=== PATIENT | female | born 1955 | race Caucasian/White ===

== ENCOUNTER 2019-08-03 10:40 | Outpatient (CLI) | payer OTHER, SELFPAY ==
--- NOTE | ~2019-08-03 | MM_ITS ---
EXAMINATION: MM screening [facility] BI w jose HISTORY: Screening mammogram TECHNIQUE: Craniocaudal and mediolateral oblique 3-D tomosynthesis images were obtained and synthetic 2-D images were generated. CAD analysis was submitted and interpreted. COMPARISON: 07/30/2018, 07/22/2017, 07/20/2016 BREAST PARENCHYMAL COMPOSITION: The breasts are almost entirely fatty. FINDINGS: There is no evidence of suspicious mass, calcification, or architectural distortion to sugg est malignancy in either breast. There has been no suspicious interval change. IMPRESSION: 1. No mammographic evidence of malignancy. 2. Recommend routine screening mammography in one year. BI-RADS Category 1: Negative Reviewed, dictated and finalized at location A.
== END 2019-08-03 10:41 | disposition home or self-care (01) ==
PROVIDERS: PCP Family Medicine Adolescent Medicine; Visit Provider Obstetrics & Gynecology
DX: Z12.31 Encounter for screening mammogram for malignant neoplasm of breast (principal)
CPT/HCPCS: 77063; 77067

== ENCOUNTER 2020-02-26 03:43 | Outpatient (CLI) | payer OTHER, SELFPAY ==
[2020-02-26 17:45] LABS: SARS-CoV-2 RNA PCR Negative
== END 2020-02-26 03:44 | disposition home or self-care (01) ==
LOC: ANHCOVIDDT 03:44
PROVIDERS: PCP Family Medicine Adolescent Medicine; Visit Provider Obstetrics & Gynecology
DX: Z01.812 Encounter for preprocedural laboratory examination (principal); Z20.828 Contact with and (suspected) exposure to other viral communicable diseases
CPT/HCPCS: 87635; C9803; U0003

== ENCOUNTER 2020-02-29 01:43 | Day surgery (SDC) | payer OTHER, SELFPAY ==
[2020-02-25 12:45] VITALS: BMI 22.2
--- NOTE | 2020-02-25 13:05 | PM.IMHP ---
H&P: HPI History of Present Illness Date/Time: 02/25/20 13:05 Chief complaint: post menopausal bleeding Narrative: Ivet Jacinto is a 65 year old female Female who is admitted for hysteroscopy D&C she had questionable postmenopausal bleeding. She underwent ultrasound showed a fibroid at the fundal area of the uterus. She is admitted to rule out pathology. Review of Systems Review of Systems: All systems reviewed & are unremarkable except as noted in HPI and below PMFSH Family History Family History Father Diabetes mellitus Mother Family history of malignant neoplasm Social History Social History Smoking status: Never smoker Alcohol intake: current Meds Home Medications and Allergies Home Medications Medication Instructions Recorded Confirmed Type alprazolam 0.5 mg PO QID PRN 02/25/20 02/25/20 History apixaban [Eliquis] 5 mg PO BID 02/25/20 02/25/20 History buspirone 10 mg PO DAILY 02/25/20 02/25/20 History calcium carbonate [Calcium 600] 600 mg PO BID 02/25/20 02/25/20 History cyclosporine [Restasis] 1 drp OPHTHALMIC (EYE) DIRECTED 02/25/20 02/25/20 History PRN sotalol 80 mg PO BID 02/25/20 02/25/20 History spironolactone 25 mg PO DAILY 02/25/20 02/25/20 History vit C,S-Ws-miuua-lutein-zeaxan 1 tablet PO BID 02/25/20 02/25/20 History [PreserVision AREDS-2] Allergies Allergy/AdvReac Type Severity Reaction Status Date / Time Sulfa (Sulfonamide Allergy Unknown Itching Verified 02/25/20 12:46 Antibiotics) adhesive Allergy SKIN Verified 02/25/20 12:47 IRRITATION W/PROLONGED USE Exam Const: General: no acute distress Eyes: General: appearance normal, both eyes and all related structures Neck: Neck: supple and no JVD Thyroid: thyroid normal Resp: Effort & Inspection: normal respiratory effort Auscultation: clear to auscultation bilaterally Cardio: Rate: regular rate Rhythm: regular rhythm GI: Inspection: non-distended GI Palp: Yes Soft to palpation, No Tenderness to palpation present (GI) and No Guarding due to palpation present (GI) Auscultation: normal bowel sounds : General: Yes bladder normal to palpation External Female Exam: normal external appearance Speculum Exam - Vagina: normal vaginal discharge and No vaginal bleeding Speculum Exam - Cervix: nontender Bimanual exam- vagina & uterus: bladder normal to palpation and No Cervical tenderness present OB/external & speculum: No vaginal bleeding Skin: General skin exam: no rashes or lesions noted Extrem: General: normal to inspection and no edema Psych: Mental Status: mental status grossly normal Affect: normal affect Assessment and Plan Additional Plan Impression: Postmenopausal bleeding Plan: Hysteroscopy / dilatation curettage
--- NOTE | 2020-02-29 06:27 | WPDHPUPDATE1 ---
History and Physical Update Update Date/Time: 02/29/20 06:27 History and Physical has been reviewed, including an updated exam of the patient. There are NO changes in the patient's condition. Risks, benefits, and alternatives have been discussed and questions answered. Patient agrees to proceed with procedure.
[2020-02-29] MEDS: ACETAMINOPHEN 500 MG TABLET 1000 MG PO (07:36)
[2020-02-29] MEDS: LACTATED RINGERS 1,000 ML 30 ML IV CONT (08:04)
[2020-02-29 08:07] LABS: Hematocrit 41.5 % (37.0-47.0); Hemoglobin 14.1 g/dL (12.0-15.0)
[2020-02-29 08:14] VITALS: BP 124/61; PULSE 45; RESP 16; TEMP 36.9; O2SAT 98
--- NOTE | 2020-02-29 08:14 | WPDANESEPPF ---
Anes - Initial Pre Proc Eval Procedure: Operation Date: 02/29/20 09:15 Proposed Procedures p Hysteroscopy, Dilation and Curettage - Feliberto Alejandro MD Date/Time: 02/29/20 08:14 Surgeon: Feliberto Alejandro MD Pre Op Diagnosis: post menopausal bleeding Patient Data Age: 65 Gender: F Height: 1.7 m Weight: 64.2 kg Allergies Allergy/AdvReac Type Severity Reaction Status Date / Time adhesive Allergy Intermediate SKIN Verified 02/29/20 07:23 IRRITATION W/PROLONGED USE Sulfa (Sulfonamide Allergy Mild Itching Verified 02/29/20 07:23 Antibiotics) Home Medications Medication Instructions Recorded Confirmed Type alprazolam 0.5 mg PO QID PRN 02/25/20 02/29/20 History apixaban [Eliquis] 5 mg PO BID 02/25/20 02/29/20 History buspirone 10 mg PO DAILY 02/25/20 02/29/20 History calcium carbonate [Calcium 600] 600 mg PO BID 02/25/20 02/29/20 History cyclosporine [Restasis] 1 drp OPHTHALMIC (EYE) DIRECTED 02/25/20 02/29/20 History PRN sotalol 80 mg PO BID 02/25/20 02/29/20 History spironolactone 25 mg PO DAILY 02/25/20 02/29/20 History vit C,F-Or-elexo-lutein-zeaxan 1 tablet PO BID 02/25/20 02/29/20 History [PreserVision AREDS-2] hydrocodone-acetaminophen 1 tablet PO Q6H PRN #20 tablet 02/29/20 Rx Laboratory Tests 02/29/20 02/29/20 08:01 08:01 Hgb 14.1 g/dL g/dL (12.0-15.0) Hct 41.5 % % (37.0-47.0) Sodium Pending Potassium Pending Chloride Pending Carbon Dioxide Pending Anion Gap Pending BUN Pending Creatinine Pending Estim Creat Clear Calc Pending Estimated GFR Pending Glucose Pending Calcium Pending Patient hx anesthesia problems: none Family hx anesthesia problems: none PMFSH Past Medical History Medical History (Updated 02/29/20 @ 08:18 by Ahsan Bro MD) Anxiety Atrial fibrillation Depression Endometriosis EDSON (obstructive sleep apnea) Family History Family History Father Diabetes mellitus Mother Family history of malignant neoplasm Social History Social History Smoking status: Never smoker Alcohol intake: current Anes - Eval Final PreProcedure Day of Procedure 02/29/20 08:14 Patient weight: normal Heart: regular rate and rhythm Lungs: clear to auscultation and normal air movement Airway: Mallampati scale class II Neurological: alert and oriented Last oral intake: >/= 8 hours ASA classification: III Emergent: no Anesthetic plan: proceed Anesthesia type and monitoring: general GIVS and LMA Informed Consent: The patient's anesthetic plan and its attendant risks and benefits were discussed with the patient/family/POA. Questions were solicited and answers provided to the satisfaction of the patient/family/POA.
[2020-02-29 08:18] LABS: Anion Gap 7 mmol/L (8-16); Blood Urea Nitrogen 12 mg/dL (7-17); Calcium 9.4 mg/dL (8.4-10.2); Carbon Dioxide 27 mmol/L (22-30); Chloride 107 mmol/L (98-107); Estimated CRCL calculation 69 ml/min; Estimated Glomerular Filt Rate > 60; Glucose 91 mg/dL (65-105); Sodium 141 mmol/L (137-145)
--- NOTE | 2020-02-29 08:44 | SUR.PREOP ---
Up to bathroom.
--- NOTE | 2020-02-29 09:22 | SUR.OPER ---
hysteroscopy irrigation 100 in and 50 out
--- NOTE | 2020-02-29 09:27 | P.OP_ITS ---
Procedure Note - Detailed Date of procedure: 02/29/20 Pre-op diagnosis: post menopausal bleeding Surgeon: Feliberto Alejandro MD postop diagnosis: Postmenopausal bleeding Procedure: Hysteroscopy / dilatation curettage Anesthesia: IV sedation and local EBL: 5Cc Complications: None Findings: Benign atrophic endometrium as expected for a woman of this age Description of procedure: The patient was prepped and draped in the normal sterile fashion and placed in the dorsal lithotomy position. Under excellent IV sedation weighted speculum placed in the posterior fornix of vagina. Anterior lip of the cervix grasped with a single-tooth tenaculum and 2.5cc 1% xylocaine anesthesia placed at 2, 4, 8, 10:00 a.m. of the cervix. Uterus sounded to 6cm. Serial dilatation with fragmented dilators performed followed by passes the 5mm visualizing hysteroscope using normal saline as visually medium. Her benign a trophic endometrium was seen as expected. Uterus was scraped over the entire 360? revealing essentially no tissue. The it to instruments were removed. All sponge, needle, instrument counts were correct. There were no immediate complications
[2020-02-29 09:29] VITALS: BP 117/62; PULSE 59; RESP 10; O2SAT 95
[2020-02-29 10:00] VITALS: BP 129/69; PULSE 50; RESP 14; O2SAT 96
== END 2020-02-29 10:30 | disposition home or self-care (01) ==
PROVIDERS: Anesthesiology; PCP Family Medicine Adolescent Medicine; Visit Provider Obstetrics & Gynecology
PROC: 0U5B8ZZ Destruction of Endometrium, Via Natural or Artificial Opening Endoscopic (ICD-10-PCS; CPT 58563; principal; 2020-02-29 09:15)
DX: N95.0 Postmenopausal bleeding (principal); I48.91 Unspecified atrial fibrillation; F41.8 Other specified anxiety disorders; G47.33 Obstructive sleep apnea (adult) (pediatric); Z79.01 Long term (current) use of anticoagulants
CPT/HCPCS: 58558; 36415; 80048; 85014; 85018; 88305; A9270; J1100; J2250; J2405; J2704; J3010; J7030; J7120

== ENCOUNTER 2020-09-07 11:46 | Outpatient (CLI) | payer BC, OTHER, SELFPAY ==
--- NOTE | ~2020-09-07 | MM_ITS ---
EXAMINATION: MM screening [facility] BI w jose HISTORY: Screening TECHNIQUE: Craniocaudal and mediolateral oblique 3-D tomosynthesis images were obtained and synthetic 2-D images were generated. CAD analysis was submitted and interpreted. COMPARISON: Comparison to multiple prior studies sequentially, with oldest reviewed study dated 06/23. BREAST PARENCHYMAL COMPOSITION: There are scattered areas of fibroglandular density. FINDINGS: There is no evidence of suspicious mass, calcification, or architectural distortion to sugg est malignancy in either breast. There has been no suspicious interval change. IMPRESSION: 1. No mammographic evidence of malignancy. 2. Recommend routine screening mammography in one year. BI-RADS Category 1: Negative Reviewed, dictated and finalized at location A.
== END 2020-09-07 11:47 | disposition home or self-care (01) ==
LOC: ANHIMG 11:50
PROVIDERS: PCP Family Medicine Adolescent Medicine; Visit Provider Obstetrics & Gynecology
DX: Z12.31 Encounter for screening mammogram for malignant neoplasm of breast (principal)
CPT/HCPCS: 77063; 77067

== ENCOUNTER 2021-03-15 10:26 | Outpatient (CLI) | payer BC, OTHER, SELFPAY ==
--- NOTE | 2021-03-15 10:30 | ECG_ITS ---
Measurements Intervals [place] Rate: 44 P: 73 IN: 160 QRS: 46 QRSD: 91 T: 70 QT: 452 QTc: 390 Interpretive Statements SINUS BRADYCARDIA BASELINE ARTIFACT- I, II, AVR, AVL ABNORMAL ECG Electronically Signed On 03-15-2021 10:51:22 PERINATAL COORDINATOR by Alverto Escobar D.O.
[2021-03-15 11:04] LABS: Basophils Absolute Auto 0.1 K/mm3 (0.0-0.1); Eosinophils Absolute Auto 0.1 K/mm3 (0-0.3); Eosinophils Percent Auto 1.4 % (0-4.4); Hematocrit 41.8 % (37.0-47.0); Hemoglobin 13.8 g/dL (12.0-15.0); Immature Granulocyte Absolute 0.01 K/mm3 (0.00-0.031); Immature Granulocyte Percent A 0.2 % (0-0.5); Lymphocytes Absolute Auto 1.93 K/mm3 (0.9-3.2); Lymphocytes Percent Auto 37.8 % (18.3-44.2); Mean Corpuscular Hemoglobin 31.8 pg (26-34); Mean Corpuscular Volume 96.3 fl (80-100); Mean Platelet Volume 10.2 fl (7.4-10.4); Monocytes Absolute Auto 0.4 K/mm3 (0.1-0.6); Monocytes Percent Auto 8.2 % (2.6-8.5); Neutrophils Absolute Auto 2.6 K/mm3 (1.3-6.7); Neutrophils Percent Auto 51.4 % (45.5-73.1); Platelet Count Result 264 k/mm3 (150-375); Red Blood Count 4.34 M/mm3 (4.2-5.4); Red Cell Distribution Width 12.1 % (11.5-14.5); White Blood Count 5.1 K/mm3 (4.5-10.0)
== END 2021-03-15 10:27 | disposition home or self-care (01) ==
LOC: ANHSURGERY 10:29
PROVIDERS: PCP Family Medicine Adolescent Medicine; Visit Provider Obstetrics & Gynecology
DX: N95.0 Postmenopausal bleeding (principal); I48.91 Unspecified atrial fibrillation; Z01.818 Encounter for other preprocedural examination; R94.31 Abnormal electrocardiogram [ECG] [EKG]
CPT/HCPCS: 36415; 85025; 86850; 86900; 86901; 93005

== ENCOUNTER 2021-03-17 01:18 | Day surgery (SDC) | payer BC, OTHER, SELFPAY ==
[2021-03-14 11:47] VITALS: BMI 23.0
--- NOTE | 2021-03-14 12:11 | PC.NURSE ---
Report to the Outpatient Waiting Room, entrance under the green pavilion located off [facility], at time 9:30 on date 03/17/21. OR Time: 11:30. - You and your visitor will be asked a series of questions to screen for COVID 19 for your protection. - A mask is required within the hospital. - Only one visitor is allowed at this time. Patient visitors will be guided where to wait when not with patient. Preoperative COVID Testing Requirements: No COVID Test needed if: (proof is required; if not received patient will have Rapid Test prior to entry) - Patient has received COVID Vaccine at least 14 days prior to procedure date or - Patient has positive COVID test result within last 90 days of surgery date. COVID Test needed if above criteria is not met If not COVID vaccinated a COVID test must be conducted within 72 hours of surgery and patient is asked to isolate self from time of testing until procedure. You will go to the [facility] for your COVID testing. The [facility] site is located at the corner of [address] [facility]. You will only be called if COVID results are positive and your surgeon may reschedule your elective surgery date. Patients may have clear liquids (water, carbonated beverages, clear teas, apple juice) until 3 hours prior to surgery with a maximum of 20 ounces. - No food from midnight until time of surgery - Infants may have breast milk until 4 hours before surgery, infant formula 6 hours prior to surgery. - Children will be allowed to drink immediately following surgery. If applicable, please bring a bottle or sippy cup to assist with drinking. Juice, water, soda, and popsicles are readily available. For infants on formula, please bring formula the day of surgery. Pacifiers are allowed. Take the following medications with a SIP of water the morning of surgery: DULOXETINE, XANAX (IF NEEDED), BUSPIRONE, SOTALOL Medications to discontinue per physician: VITAMINS/SUPPLEMENTS Date to take last dose: 3 DAYS PRE-OP DISCONTINUE ELIQUIS PER DR. PABLO ANDUJAR Please no make-up, nail french, hairspray, perfume, deodorant, or body powder the day of surgery. No jewelry (including any body piercings) or valuables the day of surgery, leave them at home. Please take a shower or bath the night before, or the morning of, surgery with an antibacterial soap. Wear comfortable, loose fitting clothing. Children are encouraged to wear pajamas. - Jewelry must be removed prior to entering the operating room. Rings and piercings that are not removed may be cut off. - The hospital will not accept responsibility for valuables. - Please leave all valuables, including medications, at home the day of surgery. If you are going home after surgery, a licensed wrecker driver must drive you home. - NO public transportation without another adult. - We recommend that an adult stay with you for 24 hours following discharge. - We also recommend that you do not drive, make important decision, drink alcoholic beverages, or take any drugs that were not prescribed by your health care provider for at least 24 hours after your discharge time. For Pediatric surgeries, we recommend two adults accompany the child home (only one inside the building at this time). Follow any additional instructions given to you from your surgeon. Telephone instructions given to CINTIA MERIDA and asked if any additional questions and then verbalized understanding. Patient advised to call surgeon office or pre surgery nurse liaison [phone] if any additional questions.
--- NOTE | 2021-03-15 07:42 | PM.IMHP ---
H&P: HPI History of Present Illness Date/Time: 03/15/21 07:42 This pleasant 66 year female who is admitted for robotic total vaginal hysterectomy and bilateral salpingo-oophorectomy. She has had postmenopausal bleeding. D&C findings have been benign. In light of her continued bleeding she is admitted for hysterectomy and bilateral salpingo-oophorectomy. Risks benefits were reviewed including but not exclusive of , aspiration bleeding transfusion perforation injury to bowel, bladder, ureters, or other internal organs with need for open laparotomy. She received the [employer] handouts entitled hysterectomy. She receives the [place] handout. She had all questions answered. She asked to proceed Chief Complaint: Postmenopausal bleeding with benign findings Review of Systems Review of Systems: All systems reviewed & are unremarkable except as noted in HPI and below PMFSH Past Medical History Medical History Anxiety Atrial fibrillation Depression Endometriosis EDSON (obstructive sleep apnea) Family History Family History Father Diabetes mellitus Mother Family history of malignant neoplasm Social History Social History Smoking status: Never smoker Alcohol intake: never Substance use: never Substance use type: does not use Spiritual care concerns: No Meds Home Medications and Allergies Home Medications Medication Instructions Recorded Confirmed Type alprazolam 0.5 mg PO QID PRN 02/25/20 03/14/21 History apixaban [Eliquis] 5 mg PO BID 02/25/20 03/14/21 History buspirone 10 mg PO DAILY 02/25/20 03/14/21 History calcium carbonate [Calcium 600] 600 mg PO BID 02/25/20 03/14/21 History sotalol 80 mg PO BID 02/25/20 03/14/21 History spironolactone 25 mg PO DAILY 02/25/20 03/14/21 History vit C,O-Nj-kyhex-lutein-zeaxan 1 tablet PO BID 02/25/20 03/14/21 History [PreserVision AREDS-2] duloxetine 30 mg PO DAILY 03/14/21 03/14/21 History Allergies Allergy/AdvReac Type Severity Reaction Status Date / Time adhesive Allergy Intermediate SKIN Verified 03/14/21 11:44 IRRITATION W/PROLONGED USE Sulfa (Sulfonamide Allergy Mild Itching Verified 03/14/21 11:44 Antibiotics) Exam Const: General: no acute distress Eyes: General: appearance normal, both eyes and all related structures Neck: Neck: supple and no JVD Thyroid: thyroid normal Resp: Effort & Inspection: normal respiratory effort Auscultation: clear to auscultation bilaterally Cardio: Rate: regular rate Rhythm: regular rhythm GI: Inspection: non-distended GI Palp: Yes Soft to palpation, No Tenderness to palpation present (GI) and No Guarding due to palpation present (GI) Auscultation: normal bowel sounds : External Female Exam: normal external appearance Speculum Exam - Vagina: normal appearance of the vagina Speculum Exam - Cervix: normal appearance of the cervix Bimanual exam- vagina & uterus: enlarged Bimanual Exam- Adnexa, other: no masses Skin: General skin exam: no rashes or lesions noted Extrem: General: normal to inspection and no edema Psych: Mental Status: mental status grossly normal Affect: normal affect Assessment and Plan Additional Plan Impression: Postmenopausal bleeding with benign D&C findings Plan: Robotic total vaginal hysterectomy bilateral salpingo-oophorectomy
[2021-03-17] VITALS (14 sets, daily range): BP systolic 100–154; BP diastolic 49–76; PULSE 40–58; RESP 14–18; TEMP 36.1–37.2; O2SAT 16–100; BMI 22.7
--- NOTE | 2021-03-17 07:01 | WPDHPUPDATE1 ---
History and Physical Update Update Date/Time: 03/17/21 07:01 History and Physical has been reviewed, including an updated exam of the patient. There are NO changes in the patient's condition. Risks, benefits, and alternatives have been discussed and questions answered. Patient agrees to proceed with procedure.
[2021-03-17] MEDS: KETOROLAC 15 MG/ML VIAL (*BKC) IV PUSH (10:30)
[2021-03-17] MEDS: ACETAMINOPHEN 500 MG TABLET 1000 MG PO (10:30)
[2021-03-17] MEDS: LACTATED RINGERS 1,000 ML 30 ML IV CONT ×2 (10:30→12:03)
--- NOTE | 2021-03-17 10:31 | P.PNAN_ITS ---
Anes - Initial Pre Proc Eval Procedure: Operation Date: 03/17/21 11:30 Proposed Procedures p Robotic Assisted Total Vaginal Hysterectomy with Bilateral Salpingo- oophorectomy - Feliberto Alejandro MD Date/Time: 03/17/21 10:31 Surgeon: Feliberto Alejandro MD Pre Op Diagnosis: post menopausal bleeding Patient Data Age: 66 Gender: F Height: 1.69 m Weight: 64.8 kg Last Vital Signs Temp 36.7 C 03/17/21 10:06 Pulse 45 L 03/17/21 10:06 Resp 18 03/17/21 10:06 BP 107/57 L 03/17/21 10:06 Pulse Ox 100 03/17/21 10:06 Allergies Allergy/AdvReac Type Severity Reaction Status Date / Time adhesive Allergy Intermediate SKIN Verified 03/17/21 09:48 IRRITATION W/PROLONGED USE Sulfa (Sulfonamide Allergy Mild Itching Verified 03/17/21 09:48 Antibiotics) Home Medications Medication Instructions Recorded Confirmed Type alprazolam 0.5 mg PO QID PRN 02/25/20 03/17/21 History apixaban [Eliquis] 5 mg PO BID 02/25/20 03/17/21 History buspirone 10 mg PO DAILY 02/25/20 03/17/21 History calcium carbonate [Calcium 600] 600 mg PO BID 02/25/20 03/17/21 History sotalol 80 mg PO BID 02/25/20 03/17/21 History spironolactone 25 mg PO DAILY 02/25/20 03/17/21 History vit C,S-Eq-ttivz-lutein-zeaxan 1 tablet PO BID 02/25/20 03/17/21 History [PreserVision AREDS-2] duloxetine 30 mg PO DAILY 03/14/21 03/17/21 History hydrocodone-acetaminophen 1 tablet PO Q4H PRN #30 tablet 03/17/21 Rx Patient hx anesthesia problems: post op nausea/vomiting Family hx anesthesia problems: none Results Review: All pre-operative results and documents have been reviewed as part of the pre-operative evaluation. [facility] Past Medical History Medical History Anxiety Atrial fibrillation Depression Endometriosis EDSON (obstructive sleep apnea) Family History Family History Father Diabetes mellitus Mother Family history of malignant neoplasm Social History Social History Smoking status: Never smoker Alcohol intake: never Substance use: never Substance use type: does not use Living arrangements: with family Spiritual care concerns: No Anes - Eval Final PreProcedure Day of Procedure 03/17/21 10:31 Patient weight: normal Heart: regular rate and rhythm Lungs: clear to auscultation Airway: Mallampati scale class III Neurological: alert and oriented Last oral intake: >/= 8 hours ASA classification: III Emergent: no Anesthetic plan: proceed Anesthesia type and monitoring: general ETT and standard monitoring Results Review: All pre-operative results and documents have been reviewed as part of the pre-operative evaluation. Informed Consent: The patient's anesthetic plan and its attendant risks and benefits were discussed with the patient/family/POA. Questions were solicited and answers provided to the satisfaction of the patient/family/POA.
[2021-03-17] MEDS: SCOPOLAMINE 1.5 MG PATCH TRANSDERM (10:46)
[2021-03-17] MEDS: ceFAZolin 2 GM/D5W 50 ML 2 GM/50 ML BAG IVPB (10:50)
--- NOTE | 2021-03-17 11:49 | W.PM.PROC2 ---
Procedure Note - Detailed Date of Procedure 03/17/21 Pre-op Diagnosis post menopausal bleeding Post-op Diagnosis same Procedure Performed Robotic total vaginal hysterectomy and bilateral salpingo-oophorectomy Surgeon Feliberto Alejandro MD Anesthesia general Indications This is a 66-year-old female with recurrence vaginal bleeding and benign findings on hysteroscopy Findings Small uterus small ovaries and tubes Description of Procedure The patient was prepped and draped in the normal sterile fashion and placed in the dorsal lithotomy position under excellent general endotracheal anesthesia weighted speculum was placed in posterior fornix vagina. Anterior lip of the cervix grasped with a single-tooth tenaculum and the uterus sounded to 8cm. Serial dilatation with fragmented dilators performed followed by passage of the number 8 LE and 3. Cold cup. A 16 [place] catheter was placed in the bladder to drain clear urine. The weighted speculum and tenaculum were removed. The gloves were changed Supraumbilical incision made the Veress needle passed in the abdomen. The abdomen filled with CO2 gas [id number]. The 8mm trocar advanced in the abdomen and the downside visualized with no injury seen. The patient was placed in Trendelenburg and left and right lateral quadrant incisions made. The 8mm trocars advanced under direct visualization assuring no injury a right upper quadrant incision made 8mm trocar advanced under direct visualization assuring no injury. The robot was docked. Attention was turned to the console. The left round ligament was grasped, burned, cut. Anteriorly a bladder flap was formed by sharply dissecting the peritoneum and reflecting the bladder caudally away to the opposite round ligament which was clamped, burned, cut. Next the left infundibulopelvic structure was skeletonized remove the left ovary and tube this was clamped, burned, cut and brought serially to the previously cut round ligament. In like fashion the right ovary and tube were removed by clamping burning and cutting the infundibulopelvic structure on the right and approaching the previously cut round ligament. Cardinal and broad ligaments on the right were then serially skeletonized hugging the cervix and uterus clamped, burned, cut and brought down to the level of the uterine vessels. These were individually clamped, burned, cut. In like fashion the cardinal broad ligaments were clamped burned and cut sliding along the edge of the uterus and cervix until the uterine vessels could be seen on the right. Uterine vessels were individually clamped, burned, cut. Excellent blanching the uterus was noted in a colpotomy incision made. The uterus cervix and tubes removed through the vagina. Blood loss estimated at [id number]. The vagina was closed with continuous running 0V lock from lateral edge to lateral edge back to the midline. Irrigation undertaken until clear and hemostasis was assured at the pedicles. The robot was undocked. The gas removed from the abdomen. The trocars removed and the incisions closed with 4 Monocryl and glue. The patient was awakened and went to recovery in satisfactory condition. All sponge, needle, instrument counts were correct. There were no immediate complications Estimated Blood Loss 5 Drains No Packing No Pathology yes Complications No immediate complications Condition stable Disposition PACU
--- NOTE | 2021-03-17 12:08 | SUR.OPER ---
EBL 25ML
[2021-03-17] MEDS: DEXTROSE 5%/LACTATED RINGERS 1,000 ML 125 ML IV CONT (13:44)
[2021-03-17] MEDS: MORPHINE SULFATE (*CRX) 4 MG/ML INJ IV PUSH (13:45)
--- NOTE | 2021-03-17 13:50 | OBPPTRN ---
Patient transferred to post room #286 via bed. Oriented to unit, room, information board, admission packet and security measures. Patient verbalizes understanding.
[2021-03-17] MEDS: KETOROLAC 30 MG/ML VIAL (*BKC) IV PUSH (16:26)
[2021-03-17] MEDS: HYDROcodone/acetaminophen (*CRX) 10-325 MG TABLET 1 TAB PO (20:17)
[2021-03-17] MEDS: DOCUSATE SODIUM 100 MG CAPSULE PO (20:17)
[2021-03-17] MEDS: IBUPROFEN 600 MG TABLET PO (20:18)
[2021-03-17] MEDS: busPIRone HCL 10 MG TABLET PO (22:17)
[2021-03-17] MEDS: SOTALOL HCL 80 MG TABLET PO (22:18)
[2021-03-18] MEDS: HYDROcodone/acetaminophen (*CRX) 10-325 MG TABLET 1 TAB PO (00:37)
[2021-03-18] MEDS: SIMETHICONE 80 MG TAB.CHEW PO (00:37)
[2021-03-18 03:20] VITALS: BP 104/47; PULSE 52; RESP 18; TEMP 36.9
[2021-03-18 05:34] LABS: Basophils Percent Auto 0.4 % (0.2-1.2); Hematocrit 33.7 % (37.0-47.0); Hemoglobin 11.3 g/dL (12.0-15.0); Immature Granulocyte Absolute 0.07 K/mm3 (0.00-0.031); Immature Granulocyte Percent A 0.6 % (0-0.5); Lymphocytes Absolute Auto 1.33 K/mm3 (0.9-3.2); Lymphocytes Percent Auto 12.3 % (18.3-44.2); Mean Corpuscular HGB Conc 33.5 g/dl (32-36); Mean Corpuscular Hemoglobin 32.3 pg (26-34); Mean Corpuscular Volume 96.3 fl (80-100); Mean Platelet Volume 10.8 fl (7.4-10.4); Monocytes Absolute Auto 0.8 K/mm3 (0.1-0.6); Monocytes Percent Auto 7.1 % (2.6-8.5); Neutrophils Absolute Auto 8.6 K/mm3 (1.3-6.7); Neutrophils Percent Auto 79.6 % (45.5-73.1); Platelet Count Result 202 k/mm3 (150-375); White Blood Count 10.8 K/mm3 (4.5-10.0)
--- NOTE | 2021-03-18 07:33 | PM.GYNPNOP ---
MEETING MANAGER - A/P Postoperative Procedures: Procedures Operation Date: 03/17/21 11:30 Actual Procedure Side Surgeon p Robotic Assisted Total Vaginal Hysterectomy with Bilateral Salpingo-oophorectomy Bilateral Feliberto Alejandro MD Postoperative day: 1 Postoperative status: doing well Postoperative plan: routine post-op care and discharge Time Spent With Patient Time: Total time spent is greater than 50% in coordination of care (as documented) at patient's floor/unit and/or counseling patient: Time with patient: less than 15 minutes MEETING MANAGER- PN:Subj Post-Op Subjective Date/time seen: 03/18/21 07:33 Subjective: patient has no complaints Review of Systems Review of Systems: All systems reviewed & are unremarkable except as noted in HPI and below Exam Const: General: no acute distress Eyes: General: appearance normal, both eyes and all related structures Neck: Neck: supple and no JVD Thyroid: thyroid normal Resp: Effort & Inspection: normal respiratory effort Auscultation: clear to auscultation bilaterally Cardio: Rate: regular rate Rhythm: regular rhythm GI: Inspection: normal to inspection and incision (cdi) : General: Yes bladder normal to palpation External Female Exam: normal external appearance Speculum Exam - Vagina: normal vaginal discharge and No vaginal bleeding Speculum Exam - Cervix: nontender Bimanual exam- vagina & uterus: bladder normal to palpation and No Cervical tenderness present OB/external & speculum: No vaginal bleeding Skin: General skin exam: no rashes or lesions noted Extrem: General: normal to inspection and no edema Psych: Mental Status: mental status grossly normal Affect: normal affect MEETING MANAGER - PN: Obj Data Vital Signs Vital Signs: Vital Signs - 24 hr 03/17/21 10:06 03/17/21 12:02 03/17/21 12:17 Temperature 98.1 F 97.0 F L Pulse Rate 45 L 58 L 41 L Respiratory Rate 18 15 15 Blood Pressure 107/57 L 129/74 149/76 H Pulse Oximetry 100 100 100 03/17/21 12:20 03/17/21 12:25 03/17/21 12:40 Temperature Pulse Rate 40 L 40 L 40 L Respiratory Rate 16 16 16 Blood Pressure 154/68 H 149/76 H 147/72 H Pulse Oximetry 100 97 97 03/17/21 12:55 03/17/21 13:05 03/17/21 13:15 Temperature Pulse Rate 41 L 46 L 46 L Respiratory Rate 14 18 15 Blood Pressure 150/71 H 133/69 146/64 H Pulse Oximetry 97 98 94 03/17/21 14:05 03/17/21 18:30 03/17/21 20:35 Temperature 97.8 F 99.0 F 97.6 F Pulse Rate 43 L 53 L 48 L Respiratory Rate 16 18 16 Blood Pressure 117/61 100/49 L 117/61 Pulse Oximetry 100 16 L 03/17/21 22:18 03/17/21 22:20 03/18/21 03:20 Temperature 99 F 98.4 F Pulse Rate 53 L 53 L 52 L Respiratory Rate 18 18 Blood Pressure 114/56 L 104/47 L Pulse Oximetry Intake/Output Intake/Output: Intake & Output 03/15/21 03/16/21 03/17/21 03/18/21 23:59 23:59 23:59 23:59 Intake Total 1650 4100 Output Total 40 2850 Balance 1610 1250 Meds/Results Medications: Active Medications Generic Name Dose Route Start Last Admin Trade Name Freq PRN Reason Stop Dose Admin Hydrocodone Bitart/Acetaminophen 1 tab 03/17/21 13:23 Hydrocodone/Acetaminophen (*Crx) 5-325 Mg Tablet PO Q3H PRN Pain Rated 5 or Less Hydrocodone Bitart/Acetaminophen 1 tab 03/17/21 13:23 03/18/21 00:37 Hydrocodone/Acetaminophen (*Crx) 10-325 Mg Tablet PO 1 tab Q3H PRN Administration Pain Rated 6 or Greater Apixaban 5 mg 03/17/21 21:00 03/17/21 22:16 Apixaban 5 Mg Tablet PO Not Given Q12HR NAZARIO Buspirone HCl 10 mg 03/17/21 21:00 03/17/21 22:17 Buspirone Hcl 10 Mg Tablet PO 10 mg HS NAZARIO Administration Docusate Sodium 100 mg 03/17/21 17:00 03/17/21 20:17 Docusate Sodium 100 Mg Capsule PO 100 mg BID NAZARIO Administration Ibuprofen 600 mg 03/17/21 13:23 03/17/21 20:18 Ibuprofen 600 Mg Tablet PO 600 mg Q6H PRN Administration Cramping Ketorolac Tromethamine 30 mg 03/17/21 13:23 03/17/21 16:26 Ketorola
--- NOTE | 2021-03-18 07:34 | PM.DS ---
DS: Admitting Diagnosis Discharge Date 03/18/2021 Admitting Diagnosis postmenopausal bleeding DS: Summary Hospital Course Hospital Course: the patient was admitted for robotic total vaginal hysterectomy and bilateral salpingo-oophorectomy. Procedure was unremarkable. She remained afebrile. She was up, voiding without difficulty, ambulating, and generally without complaints Time Spent with Patient Time attestation: Total time spent providing and/or coordinating discharge services: Exam Const: General: no acute distress Eyes: General: appearance normal, both eyes and all related structures Neck: Neck: supple and no JVD Thyroid: thyroid normal Resp: Effort & Inspection: normal respiratory effort Auscultation: clear to auscultation bilaterally Cardio: Rate: regular rate Rhythm: regular rhythm GI: Inspection: non-distended GI Palp: Yes Soft to palpation, No Tenderness to palpation present (GI) and No Guarding due to palpation present (GI) Auscultation: normal bowel sounds : General: Yes bladder normal to palpation External Female Exam: normal external appearance Speculum Exam - Vagina: normal vaginal discharge and No vaginal bleeding Speculum Exam - Cervix: nontender Bimanual exam- vagina & uterus: bladder normal to palpation and No Cervical tenderness present OB/external & speculum: No vaginal bleeding Skin: General skin exam: no rashes or lesions noted Extrem: General: normal to inspection and no edema Psych: Mental Status: mental status grossly normal Affect: normal affect DS: Data Data Completed and Pending Pending studies at discharge: Pending at discharge 03/17/21 11:30 Surgical [PTH] Routine Labs on day of discharge: Labs from last 24 hours 03/18/21 03:36 WBC 10.8 H RBC 3.50 L Hgb 11.3 L Hct 33.7 L MCV 96.3 MCH 32.3 MCHC 33.5 RDW 12.0 Plt Count 202 MPV 10.8 H Immature Gran % (Auto) 0.6 H Neut % (Auto) 79.6 H Lymph % (Auto) 12.3 L [place] % (Auto) 7.1 Eos % (Auto) 0.0 Baso % (Auto) 0.4 Lymph # (Auto) 1.33 [place] # (Auto) 0.8 H Eos # (Auto) 0.0 Baso # (Auto) 0.0 Abs Immat Gran (auto) 0.07 H Absolute Neuts (auto) 8.6 H Absolute Nucleated RBC 0.0 Nucleated RBC % 0.0 Discharge Plan Discharge Patient Disposition: Home, Self-Care Stand Alone Forms: General Discharge Instructions Follow-up/Referrals: Feliberto Alejandro MD [Physician] - Discharge Medications: New hydrocodone-acetaminophen 5-325 mg tablet 1 tablet PO Q4H PRN (Reason: pain) Qty: 30 RF: 0 No Action duloxetine 30 mg Capsule,Delayed Release(Dr/Ec) 30 mg PO DAILY RF: 0 sotalol 80 mg tablet 80 mg PO BID RF: 0 spironolactone 25 mg tablet 25 mg PO DAILY RF: 0 alprazolam 0.5 mg tablet 0.5 mg PO QID PRN (Reason: Anxiety) RF: 0 calcium carbonate [Calcium 600] 600 mg calcium (1,500 mg) Tablet 600 mg PO BID RF: 0 buspirone 15 mg tablet 10 mg PO DAILY RF: 0 Eliquis 5 mg tablet 5 mg PO BID RF: 0 PreserVision AREDS-2 [phone] Capsule 1 tablet PO BID RF: 0
[2021-03-18] MEDS: HYDROcodone/acetaminophen (*CRX) 5-325 MG TABLET 1 TAB PO (08:56)
[2021-03-18 08:57] VITALS: BP 101/47; PULSE 40; PULSE 60; RESP 12; TEMP 37.2; O2SAT 99
[2021-03-18] MEDS: SOTALOL HCL 80 MG TABLET PO (08:57)
[2021-03-18] MEDS: APIXABAN 5 MG TABLET PO (08:57)
[2021-03-18] MEDS: DOCUSATE SODIUM 100 MG CAPSULE PO (08:57)
--- NOTE | 2021-03-18 09:51 | WPDANESPN ---
Anes - Prog Note Post-Op Date/Time: 03/18/21 09:51 Cardiovascular status: normal Respiratory status: normal Airway patency: baseline Mental status: baseline Post-Op hydration status: normal Vital Signs: Last Vital Signs Temp 36.9 C 03/18/21 03:20 Pulse 60 03/18/21 08:57 Resp 18 03/18/21 03:20 BP 104/47 L 03/18/21 03:20 Pulse Ox 16 L 03/17/21 20:35 Pain Score (VAS): 0 I/O: Intake & Output 03/17/21 03/18/21 03/18/21 23:59 07:59 15:59 Intake Total 1000 4100 Output Total 2850 Balance 1000 1250 Laboratory Tests 03/18/21 03:36 03/18/21 03:36 WBC 10.8 H RBC 3.50 L Hgb 11.3 L Hct 33.7 L MCV 96.3 MCH 32.3 MCHC 33.5 RDW 12.0 Plt Count 202 MPV 10.8 H Immature Gran % (Auto) 0.6 H Neut % (Auto) 79.6 H Lymph % (Auto) 12.3 L [place] % (Auto) 7.1 Eos % (Auto) 0.0 Baso % (Auto) 0.4 Lymph # (Auto) 1.33 [place] # (Auto) 0.8 H Eos # (Auto) 0.0 Baso # (Auto) 0.0 Abs Immat Gran (auto) 0.07 H Absolute Neuts (auto) 8.6 H Absolute Nucleated RBC 0.0 Nucleated RBC % 0.0 Post-procedural complaints: none Patient Feedback: Patient satisfied with anesthetic care.
== END 2021-03-18 10:50 | disposition home or self-care (01) ==
LOC: ANHSURGERY 09:31 → ANHOB2 13:30
PROVIDERS: PCP Family Medicine Adolescent Medicine; Visit Provider Obstetrics & Gynecology
PROC: (CPT 58552; principal; 2021-03-17 11:30)
DX: N95.0 Postmenopausal bleeding (principal); N73.6 Female pelvic peritoneal adhesions (postinfective); I48.91 Unspecified atrial fibrillation; G47.33 Obstructive sleep apnea (adult) (pediatric); F32.9 Major depressive disorder, single episode, unspecified; Z79.01 Long term (current) use of anticoagulants
CPT/HCPCS: 58552; S2900; 36415; 85025; 88307; 99199; A9270; J0330; J0690; J1100; J1170; J1885; J2250; J2270; J2405; J2704; J3010; J7030; J7120; J7121

== ENCOUNTER 2021-09-19 10:33 | Outpatient (CLI) | payer OTHER, SELFPAY ==
--- NOTE | ~2021-09-19 | MM_ITS ---
EXAMINATION: MM screening [facility] BI w jose HISTORY: Screening mammogram TECHNIQUE: Craniocaudal and mediolateral oblique 3-D tomosynthesis images were obtained and synthetic 2-D images were generated. CAD analysis was submitted and interpreted. COMPARISON: 09/07/2020, 07/07/2019, 07/30/2018 BREAST PARENCHYMAL COMPOSITION: There are scattered areas of fibroglandular density. FINDINGS: There is no suspicious mass, calcification, or architectural distortion to suggest malignan cy in either breast. There has been no suspicious interval change. IMPRESSION: 1. No mammographic evidence of malignancy. 2. Recommend routine screening mammography in one year. BI-RADS Category 1: Negative Reviewed, dictated and finalized at location A.
== END 2021-09-19 10:34 | disposition home or self-care (01) ==
LOC: ANHIMG 10:34
PROVIDERS: PCP Family Medicine Adolescent Medicine; Visit Provider Obstetrics & Gynecology
DX: Z12.31 Encounter for screening mammogram for malignant neoplasm of breast (principal)
CPT/HCPCS: 77063; 77067

== ENCOUNTER 2022-09-12 11:47 | Outpatient (CLI) | payer MEDICARE, OTHER, SELFPAY ==
--- NOTE | ~2022-09-12 | MM_ITS ---
EXAMINATION: MM diagnostic [facility] BI w jose HISTORY: Nonspecific bilateral breast pain TECHNIQUE: Craniocaudal, mediolateral, and mediolateral oblique 3-D tomosynthesis images of the breas ts were performed and synthetic 2-D images were generated. CAD analysis was submitted and interpreted . COMPARISON: 09/19/2021,09/07/2020, 08/03/2019 BREAST PARENCHYMAL COMPOSITION: There are scattered areas of fibroglandular density. FINDINGS: No suspicious mass, calcification, or architectural distortion are identified in either joaquin ast to suggest malignancy. There has been no suspicious interval change. No mammographic correlate i s identified for the patient's reported breast pain. IMPRESSION: 1. No specific mammographic correlate is identified for the patient's reported breast pain. Further e valuation at this time should be based on clinical assessment. Continued follow-up physical examinati on is recommended. 2. Recommend routine screening mammography in one year. BI-RADS Category 1: Negative Reviewed, dictated and finalized at location A. IMPRESSION: 1. No specific mammographic correlate is identified for the patient's reported breast pain. Further evaluation at this time should be based on clinical assess ment. Continued follow-up physical examination is recommended. 2. Recommend routine screening mammography in one year. BI-RADS Category 1: Negative
== END 2022-09-12 11:48 | disposition home or self-care (01) ==
LOC: ANHIMG 11:51
PROVIDERS: PCP Family Medicine Adolescent Medicine; Visit Provider Obstetrics & Gynecology
DX: N64.4 Mastodynia (principal)
CPT/HCPCS: 77062; 77066; G0279

== ENCOUNTER 2023-09-17 13:58 | Outpatient (CLI) | payer MEDICARE, OTHER, SELFPAY ==
--- NOTE | ~2023-09-17 | MM_ITS ---
EXAMINATION: MM screening [facility] BI w karlos HISTORY: Screening mammogram TECHNIQUE: Craniocaudal and mediolateral oblique 3-D tomosynthesis images were obtained and synthetic 2-D images were generated. CAD analysis was submitted and interpreted. COMPARISON: 09/12/2022, 09/19/2021 bilateral screening mammogram examinations BREAST PARENCHYMAL COMPOSITION: The breasts are almost entirely fatty. FINDINGS: There is an apparent skin lesion along the anterior lower inner right breast, demonstrated on the outer medial MLO Karlos images. There is no evidence of suspicious mass, calcification, or archi tectural distortion to suggest malignancy in either breast. There has been no suspicious interval nichole nge. IMPRESSION: 1. No mammographic evidence of malignancy. 2. Recommend routine screening mammography in one year. BI-RADS Category 1: Negative Reviewed, dictated and finalized at location A.
== END 2023-09-17 13:59 | disposition home or self-care (01) ==
PROVIDERS: PCP Family Medicine Adolescent Medicine; Visit Provider Obstetrics & Gynecology
DX: Z12.31 Encounter for screening mammogram for malignant neoplasm of breast (principal)
CPT/HCPCS: 77063; 77067

== ENCOUNTER 2024-10-20 16:02 | Outpatient (CLI) | payer MEDICARE, OTHER, SELFPAY ==
--- NOTE | ~2024-10-20 | MM_ITS ---
EXAMINATION: MM screening [facility] BI w jose HISTORY: Screening TECHNIQUE: Craniocaudal and mediolateral oblique 3-D tomosynthesis images were obtained and synthetic 2-D images were generated. CAD analysis was submitted and interpreted. COMPARISON: Comparison to multiple prior studies sequentially, with oldest reviewed study dated 07/30. BREAST PARENCHYMAL COMPOSITION: Not Dense. The breasts are almost entirely fatty. FINDINGS: There is no evidence of suspicious mass, calcification, or architectural distortion to sugg est malignancy in either breast. There has been no suspicious interval change. IMPRESSION: 1. No mammographic evidence of malignancy. 2. Recommend routine screening mammography in one year. BI-RADS Category 1: Negative Reviewed, dictated and finalized at location A.
--- OUTSIDE RECORDS SUMMARY | 2024-10-20 16:44 | XMS_ITS | Encounter Summary ---
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
--- OUTSIDE RECORDS SUMMARY | 2024-10-20 16:44 | XMS_ITS | Referral Summary ---
Author Organization [facility] [address] [facility] [address] Address [address] [place] [address] Care Team Providers Care Pet Care Technician Name Role Phone Luciano Jones MD Primary Care Prov ider Encounters Date Type Department Care Team Description 09/24/2024 Telephone [facility] Cardiology [facility] 8th [place] [address] [place] [address] Gordo Martinez MD Scheduling Appointments 09/21/2024 Results Follow-Up [facility] Cardiology [address] [place] [address] Office [facility] [address] [place] [phone] Gordo Martinez MD ECG 12 lead 09/21/2024 Orders Only [address] [place] [phone] Gordo Martinez MD Paroxysmal atrial fibrillation (HCC) (Primary Dx) 09/21/2024 1:15 PM CDT Procedure visit [facility] Cardiology [address] [place] [address] Paroxysmal atrial fibrillation (HCC) 09/21/2024 Orders Only [address] Office Building [address] [place] [phone] Gordo Martinez MD Paroxysmal atrial fibrillation (HCC) (Primary Dx) 09/21/2024 Telephone [facility] Cardiology [address] [facility] 8th [place] [address] [place] [address] Gordo Martinez MD 09/10/2024 Telephone [facility] Cardiology [address] [facility] 8th [place] [address] [place] [address] Gordo Martinez MD 07/24/2024 Results Follow-Up [facility] Cardiology [address] [facility] Medical Office Building [address] [place] [phone] Gordo Martinez MD ECG 12 lead 07/23/2024 11:30 AM CDT Office Visit [facility] Cardiology [facility] Office Building [address] [place] [phone] Gordo Martinez MD Paroxysmal atrial fibrillation (HCC) [...] Diagnosed Date Coronary artery disease invo lving craig coronary artery of craig heart without angina pectoris 01/21/2024 Assessment & [...] anticoagulation Assessment & Plan (06/12/2024 11:49 AM ASSESSMENT TECHNICIAN): Paroxysmal afib, now well controlled on flecainide/metoprolol(failed [...] on file Legal Sex Female 12:32 AM ASSESSMENT TECHNICIAN Gender Identity Not on file Sexual Orientation [...] l Result from Last 3 Months Insurance [facility] H[facility]PPO Address: [facility] [address] [place] [address] [facility] [place] [address] [facility] [place] [address] [facility] CLAIMS MEDICARE [facility] Address: [address] [address] [place] [address] MEDICARE [facility] Address: [address] [address] [place] [address] [employer] Care Teams Pet Care Technician Relationship Specialty Start Date End Date Luciano Jones MD [address] [place] [address] PCP - General 05/20/07
--- OUTSIDE RECORDS SUMMARY | 2024-10-20 16:44 | XMS_ITS | Encounter Summary ---
Author Organization [facility] Address [address] [place] [address] Phone Care Team Providers Care Computer Builder Name Role Phone Luciano Jones MD Primary Care Prov ider Encounter Details Date Type Department Care Team (Late st Contact Info) Description 09/21/2024 Results Follow-Up [facility] Cardiology [address] [facility] Medical Office Building [address] [place] [address] Gordo Martinez MD [address] [facility] [address] [place], [place] [phone] ECG 12 lead Social History Tobacco Use Types Packs/Day Years Used Date Smoking Tobacco: Never Smokeless Tobacco: Never Alcohol Use Standard Drinks/Week Comments No 0 (1 standard drink = 0.6 oz pur e alcohol) Comments Unknown Sex and Gender Information Value Date Recorded Sex Assigned at Not on file Legal Sex Female 12:32 AM MANAGER UTILIZATION MANAGEMENT Gender Identity Not on file Sexual Orientation Not on file documented as of this encounter Plan of Treatment Not on file documented as of this encounter Visit Diagnoses Not on filedocumented in this encounter Care Teams Computer Builder Relationship Specialty Start Date End Date Luciano Jones MD [address] [place], [place] [id number] PCP - General 05/20/07 documented as of this encounter
--- OUTSIDE RECORDS SUMMARY | 2024-10-20 16:44 | XMS_ITS | Clinical Summary ---
Author Organization [facility] [address] Address [address] [place] [address] Care Team Providers Care City Comptroller Name Role Phone Luciano Jones MD Primary [...] Diagnosed Date Coronary artery disease invo lving yankton coronary artery of yankton heart without angina pectoris 01/21/2024 Assessment & [...] anticoagulation Assessment & Plan (06/12/2024 11:49 AM SUPERVISOR PIPELINE): Paroxysmal afib, now well controlled on flecainide/metoprolol(failed [...] Type Department Care Team Description 09/24/2024 Telephone [facility] Cardiology [address] [facility] 8th [place] [address] [place] [address] Gordo Martinez MD Scheduling Appointments 09/21/2024 1:15 PM CDT Procedure visit [facility] Medical Group Cardiology [address] [place] [address] Paroxysmal atrial fibrillation (HCC) 09/21/2024 Results Follow-Up [facility] Cardiology [address] [place] [address] Office Building [address] [place] [address] Gordo Martinez MD ECG 12 lead 09/21/2024 Orders Only [address] [place] [address] Gordo Martinez MD Paroxysmal atrial fibrillation (HCC) (Primary Dx) 09/21/2024 Orders Only [facility] Cardiology [address] [place] [address] [address] [place] [address] Gordo Martinez MD Paroxysmal atrial fibrillation (HCC) (Primary Dx) 09/21/2024 Telephone [facility] Cardiology [address] [facility] Advanced Medicine 8th [place] [address] [place] [address] Gordo Martinez MD 09/10/2024 Telephone [facility] Cardiology [address] [facility] 8th [place] [address] [place] [address] Gordo Martinez MD 07/24/2024 Results Follow-Up [facility] Cardiology [address] [place] [address] Medical Office Building [address] [place] [phone] Gordo Martinez MD ECG 12 lead 07/23/2024 11:30 AM CDT Office Visit [facility] Cardiology [address] [place] [address] Medical Office Building [address] [place] [phone] Gordo Martinez MD Paroxysmal atrial fibrillation (HCC) [...] on file Legal Sex Female 12:32 AM SUPERVISOR PIPELINE Gender Identity Not on file Sexual Orientation [...] ECG 12 lead (07/23/2024 12:16 PM CDT) us Gordo Martinez MD ECG ORDERABLES Nohelia l Result from Last 3 Months Insurance [facility] CHOICE PLUS [facility] HMO/PPO Address: [address] [address] [place] [address] [facility] CLAIMS [facility] CLAIMS MEDICARE MEDICARE [facility] FOR [facility] Care Teams City Comptroller Relationship Specialty Start Date End Date Luciano Jones MD [address] [place] [address] [facility] - General 05/20/07
--- OUTSIDE RECORDS SUMMARY | 2024-10-20 16:44 | XMS_ITS | Encounter Summary ---
Author Organization [facility] Address [address] [facility] [address] [place] [address] Phone Care Team Providers Care Wage Adjuster Name Role Phone Luciano Jones MD Primary Care Prov ider Reason for Visit * Reason Onset Date Comments Scheduling Appointments 09/24/2024 Encounter Details Date Type Department Care Team (Late st Contact Info) Description 09/24/2024 Telephone [facility] Cardiology [address] [facility] Advanced Medicine 8th [place] [address] [place] [address] Gordo Martinez MD [address] [place] [address] Scheduling Appointments Social History Tobacco Use Types Packs/Day Years Used Date Smoking Tobacco: Never Smokeless Tobacco: Never Alcohol Use Standard Drinks/Week Comments No 0 (1 standard drink = 0.6 oz pur e alcohol) Comments Unknown Sex and Gender Information Value Date Recorded Sex Assigned at Not on file 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 Yip. * Telephone Encounter - Jake Garcia - 09/24/2024 9:12 AM CDT EP REFERRAL documented in this encounter Plan of Treatment Not on file documented as of this encounter Visit Diagnoses Not on filedocumented in this encounter Care Teams Wage Adjuster Relationship Specialty Start Date End Date Luciano Jones MD [address] [place] [address] PCP - General 05/20/07 documented as of this encounter
== END 2024-10-20 16:03 | disposition home or self-care (01) ==
PROVIDERS: PCP Family Medicine Adolescent Medicine; Visit Provider Obstetrics & Gynecology
DX: Z12.31 Encounter for screening mammogram for malignant neoplasm of breast (principal)
CPT/HCPCS: 77063; 77067

== ENCOUNTER 2025-02-07 10:35 | Emergency (ER) | payer MEDICARE, OTHER, SELFPAY ==
--- NOTE | ~2025-02-07 | CT_ITS ---
CT ABDOMEN AND PELVIS WITHOUT CONTRAST Clinical History: R flank->groin pain, down R leg Comparison: CT report 04/17/2017 Technique: Unenhanced axial images lung bases to symphysis pubis Coronal, sagittal reformats CT images acquired with automatic exposure control for dose reduction DLP: 191 mGy-cm Findings: Without intravenous contrast, sensitivity for detecting visceral parenchymal abnormalities decreased. Lung bases: Clear. Visualized heart and pericardium: Unremarkable. Liver: Large cyst segment 8. Previous report measured 5 cm, current study 8 cm. Gallbladder: Unremarkable. Spleen: Unremarkable. Pancreas: Unremarkable. Adrenal glands: Unremarkable. Kidneys: Right kidney- No hydronephrosis. No renal stones. Left kidney- No hydronephrosis. No renal stones. Distal esophagus/stomach: Unremarkable. Small bowel loops: Normal caliber and wall thickness. Colon: A few diverticula. Normal caliber and wall thickness. Appendectomy. Nodes: No enlarged nodes. Peritoneum: No ascites. No free intraperitoneal air. Urinary bladder: Unremarkable. Uterus: Removed. Adnexa: No masses. Bones: No acute bony abnormality. Soft tissues: Unremarkable. Unopacified abdominal aorta: No aneurysmal dilatation. IMPRESSION: 1. No acute findings. Reviewed, dictated and finalized at location R. IMPRESSION: 1. No acute findings.
--- OUTSIDE RECORDS SUMMARY | 2025-02-07 10:37 | XMS_ITS | Encounter Summary ---
Author Organization [facility] Address [address] [place] [address] Phone Care Team Providers Care Chicken And Fish Butcher Name Role Phone Luciano Jones MD Primary Care Prov ider Encounter Details Date Type Department Care Team (Late st Contact Info) Description 12/16/2024 Results Follow-Up [facility] Medicine Cardiology [address] [facility] Advanced Medicine 8th Floor [address] [address] Dennis Yip MD PhD [address] [facility] [address] [place] [address] ECG 12 lead, Comprehensive metabolic panel Social History Tobacco Use Types Packs/Day Years Used Date Smoking Tobacco: Never Smokeless Tobacco: Never Alcohol Use Standard Drinks/Week Comments No 0 (1 standard drink = 0.6 oz pur e alcohol) Comments Unknown Sex and Gender Information Value Date Recorded Sex Assigned at Not on file 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
--- OUTSIDE RECORDS SUMMARY | 2025-02-07 10:37 | XMS_ITS | Encounter Summary ---
Author Organization [facility] Address [address] [place] [address] Phone Care Team Providers Care Bull Driver Name Role Phone Luciano Jones MD Primary [...] on file Legal Sex Female 12:32 AM GARBAGE PICK UP WORKER Gender Identity Not on file Sexual Orientation [...] on filedocumented in this encounter Care Teams Bull Driver Relationship Specialty Start Date End Date Luciano Jones MD PCP - General 05/20/07 documented as of this encounter
--- OUTSIDE RECORDS SUMMARY | 2025-02-07 10:37 | XMS_ITS | Clinical Summary ---
Author Organization [facility] [address] Address [address] [place] [address] Care Team Providers Care Statistical Assistant Name Role Phone Luicano Jones MD Primary Care Prov ider Allergies Active Allergy Reactions Criticality Noted Date Comments Adhesive Rash Medium 12/09/2023 Latex Rash Medium 11/15/2023 Sulfa (Sulfonamide Antibiotics) Medications ALPRAZolam (XANAX) 0.5 mg tablet Take 1 tablet (0.5 mg total) by mouth nightly as needed 07/23/19 24 Active Eliquis 5 mg tablet Take 1 tablet (5 mg total) by mouth 2 (two) times a day 07/23/19 24 Active busPIRone (BUSPAR) 15 mg tablet Take 1 tablet (15 mg total) by mouth 2 (two) times a day 09/29/19 24 Active metFORMIN (GLUCOPHAGE) 500 mg tablet Take 1 tablet (500 mg total) by mouth daily with breakfast 09/26/19 24 Active prednisoLONE acetate (PRED FORTE) 1 % ophthalmic suspension 3 (three) times a day 11/12/19 24 Active spironolacton e (ALDACTONE) 25 mg tablet Take 1 tablet (25 mg total) by mouth daily 07/23/19 24 Active faricimab-svo a (Vabysmo) 6 mg/0.05 mL solution by intravitreal route Active calcium carbonate-vit joe D3 1,500 mg (600mg elemental) -800 unit per tablet Take 2 tablets by mouth daily Active metoprolol XL (TOPROL-XL) 25 mg extended release tablet Take 0.5 tablets (12.5 mg total) by mouth daily 90 tablet 3 07/24/19 25 Active flecainide (TAMBOCOR) 100 mg tablet Take 1 tablet (100 mg total) by mouth 2 (two) times a day 180 tablet 3 01/23/20 25 Active rosuvastatin (CRESTOR) 5 mg tablet Take 1 tablet (5 mg total) by mouth daily 90 tablet 3 01/23/20 25 026 Active flecainide (TAMBOCOR) 100 mg tablet Take 1 tablet (100 mg total) by mouth 2 (two) times a day Start 2 days after last sotalol dose 180 tablet 3 11/18/19 24 025 Discontinued(R eorder) rosuvastatin (CRESTOR) 5 mg tablet Take 1 tablet (5 mg total) by mouth daily 90 tablet 3 01/15/20 24 025 Discontinued rosuvastatin (CRESTOR) 5 mg tablet Take 1 tablet (5 mg total) by mouth daily 90 tablet 04/08/20 24 025 Discontinued Hospital, Clinic, or Other Facility Administered Medication Ordered Dose Route Frequency Start Date End Date Status perflutren protein-a (OPTISON) 3 mL in sodium chloride 0.9% 8 mL syringe 1 - 8 mL IV Once in imaging 12/06/2023 Active Active Problems Problem Noted Date Diagnosed Date Atrial fibrillation 11/15/2023 Assessment & Plan (01/26/2025 1:41 PM CDT): Paroxysmal AFib, overall low symptom burden at this time however has had a few recurrent events in the last several months which have delayed routine medical care(colonoscopies). If recurrent events, I did recommend she proceed talk with Dr. Yip and likely proceed with the ablation. She will continue on anticoagulation for now. No bleeding events. Sleep apnea referral sent in. She wanted to see an alternative provider to who she saw a couple years ago Assessment & Plan (07/23/2024 12:29 PM CDT): Continue rhythm control with flecainide 100 mg b.i.d.. Reduce Toprol to 12.5 mg daily. On full-dose anticoagulation Assessment & Plan (06/12/2024 11:49 AM DOSIMETRIST): Paroxysmal afib, now well controlled on flecainide/metoprolol(failed [...] failure 09/19/2013 Overview (08/09/2016): OVARIAN FAILURE NEC Resolved Problems Problem Noted Date Diagnosed Date Resolved Date Coronary artery disease invo lving [place] coronary artery of [place] heart without angina pectoris 01/21/2024 01/26/2025 Assessment & Plan (07/23/2024 12:29 PM CDT): Mild disease. Continue medical therapy with statin. Holding aspirin given concomitant anticoagulant use Assessment & Plan (01/21/2024 11:04 AM CDT): On statin, f/u lipids future visit. Encounters Date Type Department Care Team Description 02/02/2025 Telephone [facility] Cardiology [address] [facility] [address] [place] [address] [place] [address] Gordo Martinez MD 01/26/2025 12:15 PM CDT Office Visit [facility] Cardiology [address] [facility] Medical [facility] [address] [place] [address] Gordo Martinez MD Coronary artery disease involving [place] coronary artery of [place] heart without angina pectoris (Primary Dx); Paroxysmal atrial fibrillation (HCC); Fatigue due to exposure, initial encounter 01/22/2025 Telephone [facility] Cardiology [address] [place] [address] [place] [address] Gordo Martinez MD 12/16/2024 12:30 PM CDT Lab [facility] Endocrinology Metabolism and Lipid [address] [facility] [address] 8th [place] [address] [place] [address] Paroxysmal atrial fibrillation (HCC); High risk medication use 12/16/2024 10:00 AM CDT Office Visit [facility] Cardiology [address] [facility] [address] [place] [address] [place] [address] Dennis Yip MD PhD Paroxysmal atrial fibrillation (HCC) (Primary Dx); High risk medication use 12/16/2024 Results Follow-Up [facility] Cardiology [facility] [facility] [address] [place] [address] [place] [address] Dennis Yip MD PhD ECG 12 lead, Comprehensive metabolic panel from Last 3 Months Family History Medical [...] on file Legal Sex Female 12:32 AM DOSIMETRIST Gender Identity Not on file Sexual Orientation Not on file Obstetrics History Last Filed Vital Signs Vital Sign Reading Time Taken Comments Blood Pressure 124/70 01/26/2025 12:11 PM CDT Pulse 61 01/26/2025 12:11 PM CDT Temperature 36.8 C (98.3 F) 12/09/2023 7:47 AM CDT Respiratory Rate 17 12/17/2023 11:02 AM CDT Oxygen Saturation 98% 01/26/2025 12:11 PM CDT Inhaled Oxygen Concentration - - Weight 73.2 kg (161 lb 6.4 oz) 01/26/2025 12:11 PM CDT Height 167.6 cm (5' 6) 01/26/2025 12:11 PM CDT Body Mass Index 26.05 01/26/2025 12:11 PM CDT Plan of Treatment Health Maintenance Due Date Last Done Comments Breast Cancer Screening-Mammogram 1957 Colon Cancer Screening-Colonoscopy 1957 Depression Screening 1957 Fall Risk Assessment 1957 Hepatitis C Screening 1957 Osteoporosis Screening-Bone Density Scan 1957 DTaP/Tdap/Td Vaccine (1 - Tdap) 01/14/1968 Hepatitis B Screening 1975 Pneumococcal vaccine 65+ (1 of 1 - PCV) 2007 Well Visit 65+ 2022 Influenza Vaccine (#1) 2025 2, 02/08/2022, 01/28/2019, Additional history exists Zoster Vaccine Completed 12/04/2021, 09/29/2021 Procedures Procedure Name Priority Date/Time Associated Diagnosis Comments COMPREHENSIVE METABOLIC PANEL Routine 12/16/2024 12:05 PM CDT Paroxysmal atrial fibrillation (HCC) High risk medication use ECG 12-LEAD Routine 12/16/2024 10:23 AM CDT Paroxysmal atrial fibrillation (HCC) from Last 3 Months Results * (ABNORMAL) Comprehensive metabolic panel (12/16/2024 12:05 PM CDT) Total Protein 7.4 6.1 - 8.4 g/dL [facility] Albumin 4.4 3.5 - 5.2 g/dL [facility] Calcium 10.7(H) 8.6 - 10.3 mg/dL [facility] BUN 7 7 - 23 mg/dL [facility] Total Bilirubin 0.42 0.20 - 1.40 mg/dL [facility] Alk Phos, Total 69 35 - 129 IU/L [facility] AST (SGOT) 22 11 - 47 IU/L [facility] ALT (SGPT) 16 6 - 53 IU/L [facility] Creatinine 0.78 0.60 - 1.10 mg/dL [facility] Sodium 143 135 - 145 mmol/L [facility] Potassium 4.4 3.3 - 5.1 mmol/L [facility] Chloride 105 95 - 107 mmol/L [facility] CO2 Content 26 21 - 29 mmol/L [facility] Glucose 90 64 - 99 mg/dL [facility] Comment: NONFASTING GLUCOSE RANGE = 64-199 mg/dL FASTING GLUCOSE 64 - 99 = NORMAL FASTING GLUCOSE 100 - 125 = IMPAIRED FASTING GLUCOSE FASTING GLUCOSE >=126 = PROVISIONAL DIAGNOSIS OF DIABETES eGFR 83.2 >60.0 mL/min/1.7 3 m2 [facility] Blood 12/16/2024 12:0 5 PM CDT 12/16/2024 12:21 PM CDT Dennis Yip MD PhD LAB BLOOD ORDERABLE S Final Result [facility] * ECG 12 lead (12/16/2024 10:23 AM CDT) Dennis Yip MD PhD ECG ORDERABLES Rod mayela Result - Final from Last 3 [place] [address] [facility] CHOICE [facility]US [facility] HMO/PPO Address: [address] [address] [place] [address] [facility] MEDICARE [facility] MEDICARE [facility] MEDICARE [facility] Care Teams Statistical Assistant Relationship Specialty Start Date End Date Luciano Jones MD PCP - General 05/20/07
[2025-02-07 11:23] VITALS: BP 107/51; PULSE 63; RESP 18; TEMP 36.5; O2SAT 98
[2025-02-07] MEDS: oxyCODONE/ACETAMINOPHEN (*CRX) 5-325 MG TABLET 1 TABLET PO (12:39)
--- OUTSIDE RECORDS SUMMARY | 2025-02-07 13:40 | XMS_ITS | Encounter Summary ---
Author Organization [facility] [employer] [facility] Address [address] [place] [address] Phone Care Team Providers Care Living Advisor Name Role Phone Luciano Jones MD Primary Care Prov ider Encounter Details Date Type Department Care Team (Late st Contact Info) Description 12/16/2024 Results Follow-Up [facility] Medicine Cardiology [address] [facility] [address] [place] [address] [place] [address] Dennis Yip MD PhD [address] [facility] [address] [place] [address] ECG 12 lead, Comprehensive metabolic panel Social History Tobacco Use Types Packs/Day Years Used Date Smoking Tobacco: Never Smokeless Tobacco: Never Alcohol Use Standard Drinks/Week Comments No 0 (1 standard drink = 0.6 oz pur e alcohol) Comments Unknown Sex and Gender Information Value Date Recorded Sex Assigned at Not on file 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
--- OUTSIDE RECORDS SUMMARY | 2025-02-07 13:40 | XMS_ITS | Clinical Summary ---
Author Organization [facility] [address] Address [address] [place] [address] Care Team Providers Care Cross Cut Sawyer Name Role Phone Luciano Jones MD Primary [...] anticoagulation Assessment & Plan (06/12/2024 11:49 AM BOW MAKER): Paroxysmal afib, now well controlled on flecainide/metoprolol(failed [...] Resolved Date Coronary artery disease invo lving [place] coronary artery of [place] heart without angina pectoris 01/21/2024 01/26/2025 Assessment & Plan (07/23/2024 12:29 PM CDT): Mild disease. Continue medical therapy with statin. Holding aspirin given concomitant anticoagulant use Assessment & Plan (01/21/2024 11:04 AM CDT): On statin, f/u lipids future visit. Encounters Date Type Department Care Team Description 02/02/2025 Telephone [facility] Cardiology [address] [place] [address] [place] [address] Gordo Martinez MD 01/26/2025 12:15 PM CDT Office Visit [facility] Cardiology [address] [facility] Medical Office [address] [place] [address] Gordo Martinez MD Coronary artery disease involving [place] coronary artery of [place] heart without angina pectoris (Primary Dx); Paroxysmal atrial fibrillation (HCC); Fatigue due to exposure, initial encounter 01/22/2025 Telephone [facility] Cardiology [address] [place] [address] [place] [address] Gordo Martinez MD 12/16/2024 12:30 PM CDT Lab [facility] Endocrinology Metabolism and Lipid [address] [place] [address] [place] [address] Paroxysmal atrial fibrillation (HCC); High risk medication use 12/16/2024 10:00 AM CDT Office Visit [facility] Cardiology [address] [place] [address] [place] [address] Dennis Yip MD PhD Paroxysmal atrial fibrillation (HCC) (Primary Dx); High risk medication use 12/16/2024 Results Follow-Up [facility] Cardiology [facility] 8th [place] [address] [place] [address] Dennis Yip MD PhD ECG 12 lead, [...] on file Legal Sex Female 12:32 AM BOW MAKER Gender Identity Not on file Sexual Orientation [...] - Final from Last 3 [place] [address] [facility] CHOICE PLUS [facility] HMO/PPO Address: [address] [address] [place] [address] [facility] MEDICARE [facility] MEDICARE [facility] MEDICARE [facility] Care Teams Cross Cut Sawyer Relationship Specialty Start Date End Date Luciano Jones MD PCP - General 05/20/07
--- OUTSIDE RECORDS SUMMARY | 2025-02-07 13:40 | XMS_ITS | Encounter Summary ---
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
[2025-02-07 13:45] VITALS: BP 133/84; PULSE 74; RESP 18; O2SAT 98
--- NOTE | 2025-02-07 14:04 | ED.BACK ---
HPI - Back Pain/Injury General Chief Complaint: Back Pain/Injury Stated Complaint: back pain Time Seen by Provider: 02/07/25 12:22 History of Present Illness HPI Narrative: Patient has been having pain in her R lower back going to her leg/front; much worse with certain movements, this did happen after she bent down and turned and thinks that she twisted her back. No focal numbness or weakness or tingling. Has had muscle strain like this in the past this is just lasting longer than usual. Related Data Home Medications ?Medication ?Instructions ?Recorded ?Confirmed ?Last Taken ?Type calcium carbonate (Calcium 600) 600 mg PO BID 02/25/20 09/17/24 03/13/21 History vit C 250 mg-vit E 90 mg-zinc 40 1 tablet PO BID 02/25/20 09/17/24 03/13/21 History mg-copper 1 [id number] capsule (PreserVision AREDS-2) flecainide 100 mg tablet 100 mg PO BID 12/03/23 09/17/24 Unknown History metoprolol succinate 50 mg 12.5 mg PO DAILY 12/03/23 02/02/25 Unknown History tablet,extended release 24 hr rosuvastatin 5 mg tablet 5 mg PO DAILY 09/17/24 09/17/24 Unknown History metoprolol succinate 25 mg 12.5 mg PO DAILY 02/02/25 02/02/25 Unknown History tablet,extended release 24 hr Allergies Allergy/AdvReac Type Severity Reaction Status Date / Time adhesive Allergy Intermediate SKIN Verified 02/07/25 11:24 IRRITATION W/PROLONGED USE Sulfa (Sulfonamide Allergy Mild Itching Verified 02/07/25 11:24 Antibiotics) amoxicillin AdvReac Unknown Unknown Verified 02/07/25 11:24 lorazepam AdvReac Unknown Unknown Verified 02/07/25 11:24 Review of Systems Review of Systems: All systems reviewed & are unremarkable except as noted in HPI and below PMFSH Past Medical History Medical History (Updated 02/07/25 @ 13:20 by Mary Edwards MD) Depression Endometriosis EDSON (obstructive sleep apnea) Surgical History Surgical History (Updated 02/07/22 @ 06:51 by Luciano Jones MD) History of hysterectomy with bilateral oophorectomy (03/2021) Hx of appendectomy (2016) Family History Family History Father Diabetes mellitus Mother Family history of malignant neoplasm Social History Social History (Updated 12/12/22 @ 10:23 by Mando Wheeler CMA) Smoking status: Never smoker Alcohol intake: never Substance use: never Substance use type: does not use Lack of Transportation: No Lack of Food: Never True Current Housing: I Have Housing Concerned About Future Housing: No Difficulty Paying Gas/Electric Bills: No Difficulty Paying for Meds: No Currently Unemployed: No Education: Bachelor's Degree Difficulty w/ Childcare or Family Care: No Living arrangements: with family Spiritual care concerns: No Exam Narrative: EXAMINATION OF ORGAN SYSTEMS/BODY AREAS: Constitutional: Vital signs per nursing GENERAL: Appears slightly uncomfortable HEAD: Normal with no signs of head trauma. EYES: EOMI, conjunctiva normal ENT: Hearing grossly intact LUNGS: Nonlabored breathing. HEART: [Regular rate and rhythm], normal strong DP pulse ABD: [Soft], [nontender to palpation] EXT: Normal range of motion; some slight tenderness to R lower back SKIN: [No rashes or lesions.] NEURO: [Alert and oriented x 3. No gross focal sensory or strength deficits. Able to ambulate] PSYCH: Normal affect Course Vital Signs Vital signs: Vital Signs Temperature 97.7 F 02/07/25 11:23 Pulse Rate 63 02/07/25 11:23 Respiratory Rate 18 02/07/25 11:23 Blood Pressure 107/51 L 02/07/25 11:23 Pulse Oximetry 98 02/07/25 11:23 Temperature 97.7 F 02/07/25 11:23 Pulse Rate 74 02/07/25 13:45 Respiratory Rate 18 02/07/25 13:45 Blood Pressure 133/84 02/07/25 13:45 Pulse Oximetry 98 02/07/25 13:45 MDM - Back Pain/Injury MDM Narrative Medical decision making narrative: ED COURSE AND MEDICAL DECISION MAKIN-year-old female with acute right-sided lower back pain. Normal motor and sensory exam. Patient able to ambulate. No evidence of acute cord compression, osteomyelitis/discitis or cauda equina without saddle anesthesia, urinary retention/incontinence, numbness/tingling in lower extremities, fever, history of IV drug use, cancer or immunosuppression. Doubt AAA or aortic dissection without severe pain/discomfort or any neurovascular deficits. 1 percocet given for symptomatic relief. I did obtain CT to rule out kidney stone. Patient already had urinalysis from her OBGYN stent from a couple days ago and would prefer not to repeat it here. On reevaluation, the symptoms are improved. Patient is able to rest more comfortably. CT without acute abnormality. I will trial a course of steroids for her symptoms. Patient is given return precautions and instructed to come back at any point in time for worsening pain, fevers, weakness, difficulty walking, urinary or fecal incontinence. Patient expressed understanding of instructions. Discharge Plan Discharge Clinical Impression: Low back pain Patient Disposition: Home Condition: Stable Instructions: Acute Low Back Pain (ED) Additional Instructions: Please follow up with your doctor; try the medications as prescribed. You can always return to the ER for any further issues. Patient Language: Cape Verdean Prescriptions: New prednisone 20 mg tablet 40 mg PO DAILY 4 Days Qty: 8 0RF acetaminophen [Tylenol Extra Strength] 500 mg tablet 1,000 mg PO Q6H PRN (Reason: pain) Qty: 50 0RF methocarbamol 750 mg tablet 750 mg PO TID PRN (Reason: muscle spasm) Qty: 30 0RF No Action flecainide 100 mg tablet 100 mg PO BID metoprolol succinate 50 mg tablet extended release 24 hr 12.5 mg PO DAILY rosuvastatin 5 mg tablet 5 mg PO DAILY metoprolol succinate 25 mg tablet extended release 24 hr 12.5 mg PO DAILY ondansetron HCl 4 mg tablet 4 mg PO Q6H PRN (Reason: nausea and vomiting) Qty: 4 0RF Rx Instructions: take 1 tablet at 4:40pm (30 minutes prior to starting prep), take 1 tablet At 10:30pm (30 minutes prior taking Magnesium citrate. calcium carbonate [Calcium 600] 600 mg calcium (1,500 mg) Tablet 600 mg PO BID PreserVision AREDS-2 [id number] Capsule 1 tablet PO BID alprazolam 0.5 mg tablet 0.5 mg PO QID PRN (Reason: Anxiety) Qty: 120 5RF Eliquis 5 mg tablet 5 mg PO BID Qty: 180 2RF buspirone 15 mg tablet 15 mg PO BID PRN (Reason: anxiety) Qty: 180 2RF metformin 500 mg tablet 500 mg PO DAILY Qty: 90 2RF spironolactone 25 mg tablet 25 mg PO DAILY Qty: 90 2RF Follow-up/Referrals: Luciano Jones MD [Primary Care Provider, Family Practice] - 2 Days
== END 2025-02-07 13:47 | disposition home or self-care (01) ==
LOC: ANHED 13:39
PROVIDERS: Emergency Provider Emergency Medicine; PCP Family Medicine Adolescent Medicine
DX: M54.50 Low back pain, unspecified (principal); F32.A Depression, unspecified; G47.30 Sleep apnea, unspecified
CPT/HCPCS: 74176; 99284; A9270; J7512

== ENCOUNTER 2025-02-10 00:10 | Day surgery (SDC) | payer MEDICARE, OTHER, SELFPAY ==
[2024-09-17 14:05] VITALS: BMI 25.0
--- NOTE | 2024-09-17 14:25 | PC.NURSE ---
Spoke with patient regarding medication Eliquis. Patient verbalizes understanding that the last dose is to be taken on 09/20/2024 and the Endoscopist will instruct them when to restart after the procedure.
--- OUTSIDE RECORDS SUMMARY | 2024-09-24 02:00 | XMS_ITS | Clinical Summary ---
Author Organization [facility] [address] Address [address] [place] [address] Care Team Providers Care Top Distribution Executive Name Role Phone Luciano Jones MD Primary Care Prov ider Allergies Active Allergy Reactions Criticality Noted Date Comments Adhesive Rash Medium 12/09/2023 Latex Rash Medium 11/15/2023 Sulfa (Sulfonamide Antibiotics) Medications ALPRAZolam (XANAX) 0.5 mg tablet Take 1 tablet (0.5 mg total) by mouth nightly as needed 4 Active Eliquis 5 mg tablet Take 1 tablet (5 mg total) by mouth 2 (two) times a day 4 Active busPIRone (BUSPAR) 15 mg tablet Take 1 tablet (15 mg total) by mouth 2 (two) times a day 4 Active metFORMIN (GLUCOPHAGE) 500 mg tablet Take 1 tablet (500 mg total) by mouth daily with breakfast 4 Active prednisoLONE acetate (PRED FORTE) 1 % ophthalmic suspension 3 (three) times a day 4 Active spironolactone (ALDACTONE) 25 mg tablet Take 1 tablet (25 mg total) by mouth daily 4 Active faricimab-svoa (Vabysmo) 6 mg/0.05 mL solution by intravitreal route Active calcium carbonate-vitam in D3 1,500 mg (600mg elemental) -800 unit per tablet Take 2 tablets by mouth daily Active flecainide (TAMBOCOR) 100 mg tablet Take 1 tablet (100 mg total) by mouth 2 (two) times a day Start 2 days after last sotalol dose 180 tablet 3 4 Active rosuvastatin (CRESTOR) 5 mg tablet Take 1 tablet (5 mg total) by mouth daily 90 tablet 3 4 01/15/20 25 Active rosuvastatin (CRESTOR) 5 mg tablet Take 1 tablet (5 mg total) by mouth daily 90 tablet 4 Active metoprolol XL (TOPROL-XL) 25 mg extended release tablet Take 0.5 tablets (12.5 mg total) by mouth daily 90 tablet 3 5 Active Hospital, Clinic, or Other Facility Administered Medication Ordered Dose Route Frequency Start Date End Date Status perflutren protein-a (OPTISON) 3 mL in sodium chloride 0.9% 8 mL syringe 1 - 8 mL IV Once in imaging 12/06/2023 Active Active Problems Problem Noted Date Diagnosed Date Coronary artery disease invo lving [place] coronary artery of [place] heart without angina pectoris 01/21/2024 Assessment & Plan (07/23/2024 12:29 PM CDT): Mild disease. Continue medical therapy with statin. Holding aspirin given concomitant anticoagulant use Assessment & Plan (01/21/2024 11:04 AM CDT): On statin, f/u lipids future visit. Atrial fibrillation 11/15/2023 Assessment & Plan (07/23/2024 12:29 PM CDT): Continue rhythm control with flecainide 100 mg b.i.d.. Reduce Toprol to 12.5 mg daily. On full-dose anticoagulation Assessment & Plan (06/12/2024 11:49 AM INDEPENDENT DISTRIBUTOR): Paroxysmal afib, now well controlled on flecainide/metoprolol(failed sotalol). On DOAC. We will refer to EP if recurrent symptoms on current regimen. Encouraged non pharmacologic measures such as regular exercise. Met with sleep medicine already Assessment & Plan (11/15/2023 9:51 AM CDT): Ongoing atrial fibrillation symptoms while on sotalol. We will plan to switch her antiarrhythmic drug therapy to metoprolol and flecainide. I did discuss with her that this may not be effective and ultimately she may require EP referral and ablation. Will do an echocardiogram and coronary CTA for further structural evaluation in addition to further evaluation of her chest pain symptoms. We discussed diet and exercise to reduce her burden of atrial fibrillation. I placed a referral to sleep medicine as well. On Eliquis for stroke prevention, CHADS2 Vasc score 3 (Age, female, htn) Other chest pain 11/15/2023 Assessment & Plan (11/15/2023 9:51 AM CDT): Coronary CTA as above. 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 (08/09/2016): DISACCHARIDASE DEF/MALAB Ovarian failure 09/19/2013 Overview (08/09/2016): OVARIAN FAILURE NEC Encounters Date Type Department Care Team Description 09/21/2024 1:15 PM CDT Procedure visit [facility] Cardiology [address] [place] [address] Paroxysmal atrial fibrillation (HCC) 09/21/2024 Results Follow-Up [address] [place] [address] Gordo Martinez MD ECG 12 lead 09/21/2024 Orders Only [facility] Cardiology [address] [place] [address] [address] [place] [address] Gordo Martinez MD Paroxysmal atrial fibrillation (HCC) (Primary Dx) 09/21/2024 Orders Only [address] [place] [address] Gordo Martinez MD Paroxysmal atrial fibrillation (HCC) (Primary Dx) 09/21/2024 Telephone [facility] Cardiology [facility] [address] [place] [address] [place] [address] Gordo Martinez MD 09/10/2024 Telephone [facility] Cardiology [address] [facility] [address] [place] [address] [place] [phone] Gordo Martinez MD 07/24/2024 Results Follow-Up [facility] Cardiology [facility] Medical Office Building [address] [place] [phone] Gordo Martinez MD ECG 12 lead 07/23/2024 11:30 AM CDT Office Visit [facility] Cardiology [address] [facility] Building [address] [place] [phone] Gordo Martinez MD Paroxysmal atrial fibrillation (HCC) (Primary Dx); High risk medication use; Other chest pain from Last 3 Months Family History Medical History Relation Name Comments Heart attack Father Relation Name Status Comments Father Social History Tobacco Use Types Packs/Day Years Used Date Smoking Tobacco: Never Smokeless Tobacco: Never Tobacco Cessation:Counseling Given: Not Answered Alcohol Use Standard Drinks/Week Comments No 0 (1 standard drink = 0.6 oz pur e alcohol) Comments Unknown Sex and Gender Information Value Date Recorded Sex Assigned at Not on file Legal Sex Female 12:32 AM INDEPENDENT DISTRIBUTOR Gender Identity Not on file Sexual Orientation Not on file Obstetrics History Last Filed Vital Signs Vital Sign Reading Time Taken Comments Blood Pressure 120/80 07/23/2024 11:44 AM CDT Pulse 45 07/23/2024 11:44 AM CDT Temperature 36.8 C (98.3 F) 12/09/2023 7:47 AM CDT Respiratory Rate 17 12/17/2023 11:02 AM CDT Oxygen Saturation 98% 07/23/2024 11:44 AM CDT Inhaled Oxygen Concentration - - Weight 68.3 kg (150 lb 9.6 oz) 07/23/2024 11:44 AM CDT Height 167.6 cm (5' 6) 07/23/2024 11:44 AM CDT Body Mass Index 24.31 07/23/2024 11:44 AM CDT Plan of Treatment Health Maintenance Due Date Last Done Comments Breast Cancer Screening-Mammogram 1957 Colon Cancer Screening-Colonoscopy 1955 Depression Screening 1957 Fall Risk Assessment 1957 Hepatitis C Screening 1957 Osteoporosis Screening-Bone Density Scan 1957 DTaP/Tdap/Td Vaccine (1 - Tdap) 01/14/1968 Hepatitis B Screening 1975 Pneumococcal vaccine 65+ (1 of 1 - PCV) 2007 Zoster Vaccine (1 of 2) 2007 Well Visit 65+ 2022 Influenza Vaccine (Season Ended) 2025 01/28/2019, 01/28/2018, 01/26/2017, Additional history exists Procedures Procedure Name Priority Date/Time Associated Diagnosis Comments ECG 12-LEAD Routine 09/21/2024 12:24 PM CDT Paroxysmal atrial fibrillation (HCC) ECG 12-LEAD Routine 07/23/2024 12:16 PM CDT Paroxysmal atrial fibrillation (HCC) High risk medication use from Last 3 Months Results * ECG 12 lead (09/21/2024 12:24 PM CDT) Gordo Martinez MD ECG ORDERABLES Nohelia l Result * ECG 12 lead (07/23/2024 12:16 PM CDT) Gordo Martinez MD ECG ORDERABLES Nohelia l Result from Last 3 Months Insurance [facility] H[facility]/PPO Address: [address] [address] [place] [address] [facility] CLAIMS MEDICARE [facility] MEDICARE [facility] JORGE [address] [place] [id number] MEDICARE [facility] Care Teams Top Distribution Executive Relationship Specialty Start Date End Date Luciano Jones MD [address] [place] [address] PCP - General 05/20/07
--- OUTSIDE RECORDS SUMMARY | 2024-09-24 02:00 | XMS_ITS | Encounter Summary ---
Author Organization [facility] Address [address] [place] [address] Phone Care Team Providers Care Office Asst Name Role Phone Luciano Jones MD Primary Care Prov ider Encounter Details Date Type Department Care Team (Latest Contact Info) Description 09/27/2023 Orders Only [facility] Scanning, Provider Social History Tobacco Use Types Packs/Day Years Used Date Smoking Tobacco: Never Assessed Alcohol Use Standard Drinks/Week Comments No 0 (1 standard drink = 0.6 oz pur e alcohol) Comments Unknown Sex and Gender Information Value Date Recorded Sex Assigned at Not on file Legal Sex Female 12:32 AM EXHIBIT CARPENTER Gender Identity Not on file Sexual Orientation Not on file documented as of this encounter Plan of Treatment Not on file documented as of this encounter Procedures Procedure Name Priority Date/Time Associated Diagnosis Comments CARDIOLOGY DOCUMENT SCAN 09/27/2023 documented in this encounter Results * Cardiology Document Scan (09/27/2023) Anatomical Region Laterality Modality Other us Provider Scanning CV CARDIAC SERVICES PROCEDURES Final Result documented in this encounter Visit Diagnoses Not on filedocumented in this encounter Care Teams Office Asst Relationship Specialty Start Date End Date Luciano Jones MD [address] [facility] [place] [address] PCP - General 05/20/07 documented as of this encounter
--- OUTSIDE RECORDS SUMMARY | 2024-09-24 02:00 | XMS_ITS | Encounter Summary ---
Author Organization [facility] Address [address] [place] [address] Phone Care Team Providers Care Consulting Networking Engineer Name Role Phone Luciano Jones MD Primary Care Prov ider Encounter Details Date Type Department Care Team (Late st Contact Info) Description 07/24/2024 Results Follow-Up [facility] Cardiology [address] [facility] Medical Office Building [address] [place] [phone] Gordo Martinez MD [address] [place], [place] [id number] ECG 12 lead Social History Tobacco Use Types Packs/Day Years Used Date Smoking Tobacco: Never Smokeless Tobacco: Never Alcohol Use Standard Drinks/Week Comments No 0 (1 standard drink = 0.6 oz pur e alcohol) Comments Unknown Sex and Gender Information Value Date Recorded Sex Assigned at Not on file Legal Sex Female 12:32 AM REAL ESTATE VALUER Gender Identity Not on file Sexual Orientation Not on file documented as of this encounter Plan of Treatment Not on file documented as of this encounter Visit Diagnoses Not on filedocumented in this encounter Care Teams Consulting Networking Engineer Relationship Specialty Start Date End Date Luciano Jones MD [address] [place], [place] [phone] PCP - General 05/20/07 documented as of this encounter
--- OUTSIDE RECORDS SUMMARY | 2024-09-24 02:00 | XMS_ITS | Encounter Summary ---
Author Organization [facility] Address [address] [place] [address] Phone Care Team Providers Care Arc Welder Apprentice Name Role Phone Luciano Jones MD Primary Care Prov ider Encounter Details Date Type Department Care Team (Late st Contact Info) Description 09/21/2024 Results Follow-Up [facility] Cardiology [address] [facility] Medical Office [address] [place] [phone] Gordo Martinez MD [address] [facility] [address] [place], [place] [phone] ECG 12 lead Social History Tobacco Use Types Packs/Day Years Used Date Smoking Tobacco: Never Smokeless Tobacco: Never Alcohol Use Standard Drinks/Week Comments No 0 (1 standard drink = 0.6 oz pur e alcohol) Comments Unknown Sex and Gender Information Value Date Recorded Sex Assigned at Not on file Legal Sex Female 12:32 AM SENIOR SOFTWARE ENGINEER ANALYTICS Gender Identity Not on file Sexual Orientation Not on file documented as of this encounter Plan of Treatment Not on file documented as of this encounter Visit Diagnoses Not on filedocumented in this encounter Care Teams Arc Welder Apprentice Relationship Specialty Start Date End Date Luicano Jones MD [address] [place], [place] [phone] PCP - General 05/20/07 documented as of this encounter
--- OUTSIDE RECORDS SUMMARY | 2024-09-24 02:00 | XMS_ITS | Referral Summary ---
Author Organization [facility] [address] [facility] [address] Address [address] [place] [address] Care Team Providers Care Talent Acquisition Manager Name Role Phone Luciano Jones MD Primary Care Prov ider Encounters Date Type Department Care Team Description 09/21/2024 Results Follow-Up [facility] Cardiology [address] [place] [address] Office Building [address] [place] [phone] Gordo Martinez MD ECG 12 lead 09/21/2024 Orders Only [address] [place] [phone] Gordo Martinez MD Paroxysmal atrial fibrillation (HCC) (Primary Dx) 09/21/2024 1:15 PM CDT Procedure visit [facility] Medical [facility] Cardiology [address] [place] [address] Paroxysmal atrial fibrillation (HCC) 09/21/2024 Orders Only [address] Office [facility] [address] [place] [phone] Gordo Martinez MD Paroxysmal atrial fibrillation (HCC) (Primary Dx) 09/21/[address] Advanced Medicine [address]th [place] [address] [place] [address] Gordo Martinez MD 09/10/2024 Telephone [facility] Cardiology [facility] 8th [place] [address] [place] [address] Gordo Martinez MD 07/24/2024 Results Follow-Up [facility] Cardiology [facility] Office Building [address] [place] [address] Gordo Martinez MD ECG 12 lead 07/23/2024 11:30 AM CDT Office Visit [facility] Cardiology [address] [facility] Office Building [address] [place] [address] Gordo Martinez MD Paroxysmal atrial fibrillation (HCC) (Primary Dx); High risk medication use; Other chest pain from Last 3 Months Allergies Active Allergy Reactions Criticality Noted Date [...] Diagnosed Date Coronary artery disease invo lving flandreau coronary artery of flandreau heart without angina pectoris 01/21/2024 Assessment & [...] anticoagulation Assessment & Plan (06/12/2024 11:49 AM CUT OFF SAW OPERATOR): Paroxysmal afib, now well controlled on flecainide/metoprolol(failed [...] failure 09/19/2013 Overview (08/09/2016): OVARIAN FAILURE NEC Social History Tobacco Use Types Packs/Day Years Used Date Smoking Tobacco: Never Smokeless Tobacco: Never Tobacco Cessation:Counseling Given: Not Answered Alcohol Use Standard Drinks/Week Comments No 0 (1 standard drink = 0.6 oz pur e alcohol) Comments Unknown Sex and Gender Information Value Date Recorded Sex Assigned at Not on file Legal Sex Female 12:32 AM CUT OFF SAW OPERATOR Gender Identity Not on file Sexual Orientation Not on file Last Filed Vital Signs Vital Sign Reading [...] 07/23/2024 11:44 AM CDT Plan of Treatment Not on file Procedures Procedure Name Priority Date/Time Associated Diagnosis [...] l Result from Last 3 Months Insurance [facility] CHOICE [facility] H[facility]/PPO Address: [address] [address] [place] [address] [facility] CLAIMS MEDICARE [facility] MEDICARE MEDICARE [facility] Care Teams Talent Acquisition Manager Relationship Specialty Start Date End Date Luciano Jones MD [address] [place] [address] PCP - General 05/20/07
--- OUTSIDE RECORDS SUMMARY | 2024-09-24 02:00 | XMS_ITS | Encounter Summary ---
Author Organization [facility] Address [address] [place] [address] Phone Care Team Providers Care Metal Engraver Name Role Phone Luciano Jones MD Primary Care Prov ider Encounter Details Date Type Department Care Team (Late st Contact Info) Description 09/10/2024 Telephone [facility] Cardiology [address] [facility] Advanced Medicine 8th [place] [address] [place] [address] Gordo Martinez MD [address] [place] [address] Social History Tobacco Use Types Packs/Day Years Used Date Smoking Tobacco: Never Smokeless Tobacco: Never Alcohol Use Standard Drinks/Week Comments No 0 (1 standard drink = 0.6 oz pur e alcohol) Comments Unknown Sex and Gender Information Value Date Recorded Sex Assigned at Not on file Legal Sex Female 12:32 AM ASSOCIATE PRINCIPAL Gender Identity Not on file Sexual Orientation Not on file documented as of this encounter Miscellaneous Notes * Telephone Encounter - Shirley Pierre - 09/10/2024 12:05 PM CDT Faxed clearance letter to [facility] [phone] * Telephone Encounter - Gordo Martinez MD - 09/10/2024 11:26 AM CDT Okay to hold. * Telephone Encounter - PedersenPeñaa - 09/10/2024 10:29 AM CDT holding medication CALLER NAME: Olympia Fields FACILITY NAME: [facility] PHONE NUMBER: [phone] FAX NUMBER: [phone] TYPE OF SURGERY: Colonoscopy NAME OF SURGEON: Dr. Cavanaugh SCHEDULED FOR: 09/24/24 MEDICATION TO BE HELD: Eliquis FOR 3 DAYS COMMENTS: documented in this encounter Plan of Treatment Not on file documented as of this encounter Visit Diagnoses Not on filedocumented in this encounter Care Teams Metal Engraver Relationship Specialty Start Date End Date Luciano Jones MD [address] [place] [address] PCP - General 05/20/07 documented as of this encounter
[2025-02-02 14:55] VITALS: BMI 25.8
--- NOTE | 2025-02-02 15:16 | PC.NURSE ---
Spoke with PATIENT regarding medication ELIQUIS. PATIENT verbalizes understanding that the last dose is to be taken on 02/06/2025 and the Endoscopist will instruct them when to restart after the procedure.
--- NOTE | 2025-02-05 10:59 | PC.NURSE ---
Pt states in the past she has had problems with nausea and vomiting when taking the prep. She was not completely do to vomiting part of prep. Ondansetron 4mg tablets with instructions ordered per Dr. Cavanaugh.
--- OUTSIDE RECORDS SUMMARY | 2025-02-10 00:13 | XMS_ITS | Encounter Summary ---
Author Organization [facility] Address [address] [place] [address] Phone Care Team Providers Care Pigs Feet Cleaner Name Role Phone Luciano oJnes MD Primary Care Prov ider Encounter Details Date Type Department Care Team (Late st Contact Info) Description 12/16/2024 Results Follow-Up [facility] Medicine Cardiology [address] [facility] 8th [place] [address] [place] [address] Dennis Yip MD PhD [address] [facility] [address] [place] [address] ECG 12 lead, Comprehensive metabolic panel Social History Tobacco Use Types Packs/Day Years Used Date Smoking Tobacco: Never Smokeless Tobacco: Never Alcohol Use Standard Drinks/Week Comments No 0 (1 standard drink = 0.6 oz pur e alcohol) Comments Unknown Sex and Gender Information Value Date Recorded Sex Assigned at Not on file 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
--- OUTSIDE RECORDS SUMMARY | 2025-02-10 00:13 | XMS_ITS | Encounter Summary ---
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
--- OUTSIDE RECORDS SUMMARY | 2025-02-10 00:13 | XMS_ITS | Clinical Summary ---
Author Organization [facility] [address] Address [address] [place] [address] Care Team Providers Care Veterans Services Specialist Name Role Phone Luciano Jones MD Primary [...] anticoagulation Assessment & Plan (06/12/2024 11:49 AM KILN PUSHER): Paroxysmal afib, now well controlled on flecainide/metoprolol(failed [...] Resolved Date Coronary artery disease invo [place] coronary artery of [place] heart without angina pectoris 01/21/2024 01/26/2025 Assessment & Plan (07/23/2024 12:29 PM CDT): Mild disease. Continue medical therapy with statin. Holding aspirin given concomitant anticoagulant use Assessment & Plan (01/21/2024 11:04 AM CDT): On statin, f/u lipids future visit. Encounters Date Type Department Care Team Description 02/02/2025 Telephone [facility] Cardiology [address] [place] [address] [place] [address] Gordo Martinez MD 01/26/2025 12:15 PM CDT Office Visit [facility] Cardiology [address] [facility] [address] [place] [address] Gordo Martinez MD Coronary artery disease involving [place] coronary artery of [place] heart without angina pectoris (Primary Dx); Paroxysmal atrial fibrillation (HCC); Fatigue due to exposure, initial encounter 01/22/2025 Telephone [facility] Cardiology [address] [place] [address] [place] [address] Gordo Martinez MD 12/16/2024 12:30 PM CDT Lab [facility] Endocrinology Metabolism and Lipid [address] [place] [address] [place] [address] Paroxysmal atrial fibrillation (HCC); High risk medication use 12/16/2024 10:00 AM CDT Office Visit [facility] Cardiology [address] [place] [address] [place] [address] Dennis Yip MD PhD Paroxysmal atrial fibrillation (HCC) (Primary Dx); High risk medication use 12/16/2024 Results Follow-Up [facility] Cardiology [facility] [facility] [address] [place] [address] [place] [address] Dennis Yip MD PhD ECG 12 lead, [...] on file Legal Sex Female 12:32 AM KILN PUSHER Gender Identity Not on file Sexual Orientation [...] - Final from Last 3 [place] [address] [facility] CHOICE PLUS [facility] HMO/PPO Address: [address] [address] [place] [address] [facility] MEDICARE [facility] MEDICARE [facility] MEDICARE [facility] Care Teams Veterans Services Specialist Relationship Specialty Start Date End Date Luciano Jones MD PCP - General 05/20/07
--- NOTE | 2025-02-10 07:06 | WPDANESEPPF ---
Anes - Initial Pre Proc Eval Procedure: Operation Date: 02/10/25 09:30 Proposed Procedures p Screening Colonoscopy - Zhang Cavanaugh DO Date/Time: 02/10/25 07:06 Surgeon: Zhang Cavanaugh DO Pre Op Diagnosis: Screening for malignant neoplasm of colon Patient Data Age: 70 Gender: F Height: 1.68 m Weight: 72.6 kg Allergies Allergy/AdvReac Type Severity Reaction Status Date / Time adhesive Allergy Intermediate SKIN Verified 02/10/25 08:04 IRRITATION W/PROLONGED USE Sulfa (Sulfonamide Allergy Mild Itching Verified 02/10/25 08:04 Antibiotics) amoxicillin AdvReac Unknown Unknown Verified 02/10/25 08:04 lorazepam AdvReac Unknown Unknown Verified 02/10/25 08:04 Home Medications ?Medication ?Instructions ?Recorded ?Confirmed ?Type calcium carbonate (Calcium 600) 600 mg PO BID 02/25/20 02/10/25 History vit C 250 mg-vit E 90 mg-zinc 40 1 tablet PO BID 02/25/20 02/10/25 History mg-copper 1 [id number] capsule (PreserVision AREDS-2) alprazolam 0.5 mg tablet 0.5 mg PO QID PRN Anxiety #120 tabs 07/16/23 09/17/24 Rx flecainide 100 mg tablet 100 mg PO BID 12/03/23 02/10/25 History metoprolol succinate 50 mg 12.5 mg PO DAILY 12/03/23 02/02/25 History tablet,extended release 24 hr apixaban 5 mg tablet (Eliquis) 5 mg PO BID #180 tabs 06/23/24 02/10/25 Rx buspirone 15 mg tablet 15 mg PO BID PRN anxiety #180 tabs 06/23/24 09/17/24 Rx metformin 500 mg tablet 500 mg PO DAILY #90 tabs 06/23/24 02/10/25 Rx spironolactone 25 mg tablet 25 mg PO DAILY #90 tabs 06/23/24 02/10/25 Rx rosuvastatin 5 mg tablet 5 mg PO DAILY 09/17/24 02/10/25 History metoprolol succinate 25 mg 12.5 mg PO DAILY 02/02/25 02/10/25 History tablet,extended release 24 hr ondansetron HCl 4 mg tablet 4 mg PO Q6H PRN nausea and 02/05/25 Rx vomiting #4 tabs acetaminophen 500 mg tablet 1,000 mg (2 x 500 mg) PO Q6H PRN 02/07/25 02/08/25 Rx (Tylenol Extra Strength) pain #50 tabs methocarbamol 750 mg tablet 750 mg PO TID PRN muscle spasm #30 02/07/25 02/10/25 Rx tabs prednisone 20 mg tablet 20 mg PO Q12H 02/08/25 02/10/25 History Patient hx anesthesia problems: none Family hx anesthesia problems: none Results Review: All pre-operative results and documents have been reviewed as part of the pre-operative evaluation. [facility] Past Medical History Medical History (Updated 02/10/25 @ 09:21 by Zhang Cavanaugh DO) Hyperlipidemia Paroxysmal atrial fibrillation Depression Endometriosis EDSON (obstructive sleep apnea) Surgical History Surgical History (Updated 02/07/22 @ 06:51 by Luciano Jones MD) History of hysterectomy with bilateral oophorectomy (03/2021) Hx of appendectomy (2016) Family History Family History Father Diabetes mellitus Mother Family history of malignant neoplasm Social History Social History (Updated 12/12/22 @ 10:23 by Mando Wheeler CMA) Smoking status: Never smoker Alcohol intake: never Substance use: never Substance use type: does not use Lack of Transportation: No Lack of Food: Never True Current Housing: I Have Housing Concerned About Future Housing: No Difficulty Paying Gas/Electric Bills: No Difficulty Paying for Meds: No Currently Unemployed: No Education: Bachelor's Degree Difficulty w/ Childcare or Family Care: No Living arrangements: with family Spiritual care concerns: No Anes - Eval Final PreProcedure Day of Procedure 02/10/25 07:06 Patient weight: overweight Heart: regular rate and rhythm Lungs: clear to auscultation Airway: Mallampati scale class II Neurological: alert and oriented Last oral intake: >/= 8 hours ASA classification: III Emergent: no Anesthetic plan: proceed Anesthesia type and monitoring: general GIVS and standard monitoring Results Review: All pre-operative results and documents have been reviewed as part of the pre-operative evaluation. Informed Consent: The patient's anesthetic plan and its attendant risks and benefits were discussed with the patient/family/POA. Questions were solicited and answers provided to the satisfaction of the patient/family/POA.
[2025-02-10 08:05] VITALS: BP 144/84; PULSE 90; RESP 18; TEMP 36.1; O2SAT 98; BMI 25.6
[2025-02-10] MEDS: LACTATED RINGERS 1,000 ML 150 ML IV CONT (08:22)
[2025-02-10] MEDS: MIDAZOLAM HCL (*CRX) 2 MG/2 ML VIAL 1 MG IV PUSH (08:39)
--- NOTE | 2025-02-10 09:20 | PM.IMHP ---
H&P: HPI History of Present Illness Date/Time: 02/10/25 09:20 Chief Complaint: screening for colorectal cancer Narrative: this is a 70-year-old woman who presents for colonoscopy. Her last colonoscopy was about 7 years ago. She denies any hematochezia or melena. She denies any family history of colon cancer. Review of Systems Review of Systems: All systems reviewed & are unremarkable except as noted in HPI and below Constitutional: Constitutional: Denies chills, Denies fever(s), Denies headache(s) and Denies weight loss Eyes: Eyes: Denies change in vision ENT: Denies dizziness, Denies headache(s), Denies neck mass and Denies throat swelling Cardiovascular: Cardiovascular: Denies chest pain, Denies lightheadedness and Denies dyspnea Respiratory: Respiratory: Denies cough, Denies dyspnea and Denies wheezing Gastrointestinal: Gastrointestinal: Denies abdominal pain, Denies change in bowel habits, Denies nausea and Denies vomiting Genitourinary: Genitourinary: Denies hematuria and Denies dysuria Musculoskeletal: Musculoskeletal: Reports as per HPI Integumentary/Breasts: Skin/Breast: Reports as per HPI Neurologic: Denies dizziness and Denies headache(s) Allergic/Immunologic: Allergic/Immunologic: Denies throat swelling and Denies wheezing [facility] Past Medical History Medical History (Updated 02/10/25 @ 09:21 by Zhang Cavanaugh DO) Hyperlipidemia Paroxysmal atrial fibrillation Depression Endometriosis EDSON (obstructive sleep apnea) Surgical History Surgical History (Updated 02/07/22 @ 06:51 by Luciano Jones MD) History of hysterectomy with bilateral oophorectomy (03/2021) Hx of appendectomy (2016) Family History Family History Father Diabetes mellitus Mother Family history of malignant neoplasm Social History Social History (Updated 12/12/22 @ 10:23 by Mando Wheeler CMA) Smoking status: Never smoker Alcohol intake: never Substance use: never Substance use type: does not use Lack of Transportation: No Lack of Food: Never True Current Housing: I Have Housing Concerned About Future Housing: No Difficulty Paying Gas/Electric Bills: No Difficulty Paying for Meds: No Currently Unemployed: No Education: Bachelor's Degree Difficulty w/ Childcare or Family Care: No Living arrangements: with family Spiritual care concerns: No Meds Home Medications and Allergies Home Medications ?Medication ?Instructions ?Recorded ?Confirmed ?Type calcium carbonate (Calcium 600) 600 mg PO BID 02/25/20 02/10/25 History vit C 250 mg-vit E 90 mg-zinc 40 1 tablet PO BID 02/25/20 02/10/25 History mg-copper 1 [id number] capsule (PreserVision AREDS-2) alprazolam 0.5 mg tablet 0.5 mg PO QID PRN Anxiety #120 tabs 07/16/23 09/17/24 Rx flecainide 100 mg tablet 100 mg PO BID 12/03/23 02/10/25 History metoprolol succinate 50 mg 12.5 mg PO DAILY 12/03/23 02/02/25 History tablet,extended release 24 hr apixaban 5 mg tablet (Eliquis) 5 mg PO BID #180 tabs 06/23/24 02/10/25 Rx buspirone 15 mg tablet 15 mg PO BID PRN anxiety #180 tabs 06/23/24 09/17/24 Rx metformin 500 mg tablet 500 mg PO DAILY #90 tabs 06/23/24 02/10/25 Rx spironolactone 25 mg tablet 25 mg PO DAILY #90 tabs 06/23/24 02/10/25 Rx rosuvastatin 5 mg tablet 5 mg PO DAILY 09/17/24 02/10/25 History metoprolol succinate 25 mg 12.5 mg PO DAILY 02/02/25 02/10/25 History tablet,extended release 24 hr ondansetron HCl 4 mg tablet 4 mg PO Q6H PRN nausea and 02/05/25 Rx vomiting #4 tabs acetaminophen 500 mg tablet 1,000 mg (2 x 500 mg) PO Q6H PRN 02/07/25 02/08/25 Rx (Tylenol Extra Strength) pain #50 tabs methocarbamol 750 mg tablet 750 mg PO TID PRN muscle spasm #30 02/07/25 02/10/25 Rx tabs prednisone 20 mg tablet 20 mg PO Q12H 02/08/25 02/10/25 History Allergies Allergy/AdvReac Type Severity Reaction Status Date / Time adhesive Allergy Intermediate SKIN Verified 02/10/25 08:04 IRRITATION W/PROLONGED USE Sulfa (Sulfonamide Allergy Mild Itching Verified 02/10/25 08:04 Antibiotics) amoxicillin AdvReac Unknown Unknown Verified 02/10/25 08:04 lorazepam AdvReac Unknown Unknown Verified 02/10/25 08:04 Vital Signs Vital Signs - 24 hr 02/10/25 08:05 Temperature 97 F L Pulse Rate 90 Respiratory Rate 18 Blood Pressure 144/84 H Pulse Oximetry 98 Oxygen Delivery Room Air Exam Const: General: no acute distress and alert Orientation/consciousness: patient oriented x3 HENMT: Head: normocephalic and atraumatic Ears: hearing grossly normal bilaterally Face/Nose/Sinus: Normal nares present Mouth: Yes Normal oral and palatal mucosa present Eyes: Periorbital: periorbital findings normal Sclera: sclerae normal EOM: EOMs intact bilaterally Neck: Neck: normal visual inspection, no lymphadenopathy and trachea midline Chest: Chest palpation & inspection: normal inspection of the chest Resp: Effort & Inspection: normal respiratory effort Auscultation: clear to auscultation bilaterally Cardio: Jugular venous distension: no JVD Rate: regular rate Rhythm: regular rhythm Heart sounds: S1 normal heart sound present and S2 normal heart sound present Peripheral pulses: Peripheral pulses 2+ throughout GI: Inspection: normal to inspection GI Palp: Yes Soft to palpation, No Tenderness to palpation present (GI), No Guarding due to palpation present (GI) and No Rebound tenderness present Percussion: Yes normal to percussion Auscultation: normal bowel sounds : General: Yes no CVA tenderness Back/Spine/Pelvis: Back: no CVA tenderness Neuro: General: patient oriented x3, no focal motor deficits and CN's II-XI intact bilaterally Cognition (Neuro): normal cognition Speech: normal speech Motor exam (neuro): 5/5 motor strength present throughout Extrem: General: capillary refill normal and no clubbing, cyanosis or edema Assessment and Plan Assessment and plan (1) Screening for colorectal cancer: Code(s): Z12.11 - Encounter for screening for malignant neoplasm of colon; Z12.12 - Encounter for screening for malignant neoplasm of rectum Status: Acute Assessment and Plan: I have recommended colonoscopy. I have discussed the procedure, risks, benefits, and alternatives. Questions were answered. Patient is agreeable to proceed.
--- NOTE | 2025-02-10 09:54 | S_PTH ---
PATIENT: Ivet Jacinto LOC: [facility]#:[id number] AGE/SX: 70/F ROOM: RE02/10/[address]: Zhang Cavanaugh DO : 1955 BED: DIS: 02/10/2025 SPEC #: [id number] RECD: 02/10/25 11:18 STATUS: OSWALDO REOnur #: [id number] FREDY: 02/10/25 09:[address]: Zhang Cavanaugh DEPT: [facility] Surgical RECD BY: Debbie Brock ENTERED: 02/10/25 11:19 SP TYPE: Surgical OTHR DR: Luciano Jones MD Tissues: A - Colon Polypectomy Procedures: Hematoxylin and Eosin Stain Gross and Microscopic Level 4
[2025-02-10 09:55] VITALS: BP 104/62; PULSE 70; RESP 14; O2SAT 96
[2025-02-10 10:05] VITALS: BP 111/76; PULSE 74; RESP 22; O2SAT 100
[2025-02-10 10:15] VITALS: BP 111/93; PULSE 72; RESP 21; O2SAT 99
--- NOTE | 2025-02-11 08:35 | SUR.OPER ---
Dr. Cavanaugh notified that ascending colon polyp was not retrieved. No new orders for pathology for ascending colon polyp.
== END 2025-02-10 10:32 | disposition home or self-care (01) ==
PROVIDERS: PCP Family Medicine Adolescent Medicine; Visit Provider Surgery
PROC: 0DJD8ZZ Inspection of Lower Intestinal Tract, Via Natural or Artificial Opening Endoscopic (ICD-10-PCS; CPT 45378; principal; 2025-02-10 09:30)
DX: Z12.11 Encounter for screening for malignant neoplasm of colon (principal); D12.8 Benign neoplasm of rectum; K57.30 Diverticulosis of large intestine without perforation or abscess without bleeding; E78.5 Hyperlipidemia, unspecified; I48.0 Paroxysmal atrial fibrillation; F32.A Depression, unspecified; N80.9 Endometriosis, unspecified; G47.33 Obstructive sleep apnea (adult) (pediatric); Z79.01 Long term (current) use of anticoagulants; Z79.84 Long term (current) use of oral hypoglycemic drugs; Z79.52 Long term (current) use of systemic steroids; Z98.890 Other specified postprocedural states; Z80.9 Family history of malignant neoplasm, unspecified
CPT/HCPCS: 45385; 82948; 88305; J1596; J2250; J2704; J7120